=== PATIENT | female | born 1995 | race Caucasian/White ===

== ENCOUNTER 2025-02-10 10:01 | Emergency (ER) | payer BC ==
--- OUTSIDE RECORDS SUMMARY | 2025-02-10 10:08 | XMS REPORT | Continuity of Care Document ---
Author Name Unknown Address [address] [facility] [address] [place] [address] [facility] Address [address] [facility] [address] [place] [address] Care Team Providers Care [facility] Coordinator Name Role Phone aTmmi Wheeler Attending Clinician Unavailable LIZBETH COELLO Attending Clinician Unavaila ble Marry Severino Attending Clinician Unavailable [email or web address] Attending Clinician Unavaila ble G_Pappas Attending Clinician Unavailable WHIT HICKS Attending Clinician Unavailable KATHLEEN Attending Clinician Unavailable CAIO MARLEY Attending Clinician Unavailable ALAN LLOYD Attending Clinician Unavailab MELISSA Gavin Attending Clinician Unavailable Tammi Wheeler Admitting Clinician Unavailable Marry Severino Admitting Clinician Unavailable [email or web address]_S Admitting Clinician Unavaila ble G_Pappas Admitting Clinician Unavailable KNOW, DOES_NOT Admitting Clinician Unavailable KATHLEEN Admitting Clinician Unavailable LIZBETH COELLO Admitting Clinician Unavaila arsh Payers Payer Name Policy Type Policy Number Effective Date Expirati on Date Source [place] [id number] 2018 00:00:00 Problems Condition Name Condition Details Condition Category Status Onset Date Resolution Date Last Treatment Date Treating Clinician Comments Source Polyhydram nios Polyhydram nios Problem Active 03-22 00:00: 00 [facility] Large for gestation age fetus Large for Gestation Age Fetus Problem Active 5-05 00:00: 00 [facility] 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 Problem Active 2021-11 1 00:00: 00 [facility] Psoriasis Psoriasis Problem Active 2021-11 00:00: 00 [facility] Problem Active 2021-11 00:00: 00 [facility] High risk due to history of labor High Risk Due to History of Labor Problem Active 2021-11 00:00: 00 [facility] History of premature delivery History of Premature Delivery Problem Active 2018-11 00:00: 00 [facility] Nausea and vomiting Nausea and Vomiting Problem Active 808 00:00: 00 [facility] Risk of exposure to communicab le disease Risk of Exposure to Communicab le Disease Problem Active 807 00:00: 00 [facility] Atypical squamous cells of undetermin ed significan ce Atypical Squamous Cells of Undetermin ed Significan ce Problem Active 7-16 00:00: 00 [facility] Cannabis abuse Cannabis Abuse Problem Active 6-17 00:00: 00 [facility] Allergies, Adverse Reactions, Alerts Allergy Name Allergy Type Status Severity Reaction(s) Onset Date Inactive Date Treating Clinician Comments Source No Known Allergie s DA Active U 8-07 00:00: 00 [facility] No Known Allergie s DA Active U 6-08 00:00: 00 [facility] Social History Smoking Status Start Date Stop Date Source Former Smoker [place] [facility] Medications Ordered Medication Name Filled Medication Name Start Date Stop Date Current Medication? Ordering Clinician Indication Dosage Frequency Signature (SIG) Comments Components Source No [facility] triamcinolo ne acetonide 0.025 % topical cream APPLY A THIN LAYER TO THE AFFECTED AREA(S) BY TOPICAL ROUTE 2 TIMES PER DAY triamcinolo ne acetonide 0.025 % topical cream APPLY A THIN LAYER TO THE AFFECTED AREA(S) BY TOPICAL ROUTE 2 TIMES PER DAY No triamcinol one acetonide 0.025 % topical cream APPLY A THIN LAYER TO THE AFFECTED AREA(S) BY TOPICAL ROUTE 2 TIMES PER DAY [facility] Vitafol Ultra 29 mg iron-1 mg-200 mg capsule Take 1 capsule every day by oral route. Vitafol Ultra 29 mg iron-1 mg-200 mg capsule Take 1 capsule every day by oral route. No 1capsul e(s) Q1D Vitafol Ultra 29 mg iron-1 mg-200 mg capsule Take 1 capsule every day by oral route. [facility] No [facility] triamcinolo ne acetonide 0.025 % topical cream APPLY A THIN LAYER TO THE AFFECTED AREA(S) BY TOPICAL ROUTE 2 TIMES PER DAY triamcinolo ne acetonide 0.025 % topical cream APPLY A THIN LAYER TO THE AFFECTED AREA(S) BY TOPICAL ROUTE 2 TIMES PER DAY No triamcinol one acetonide 0.025 % topical cream APPLY A THIN LAYER TO THE AFFECTED AREA(S) BY TOPICAL ROUTE 2 TIMES PER DAY [facility] Vitafol Ultra 29 mg iron-1 mg-200 mg capsule Take 1 capsule every day by oral route. Vitafol Ultra 29 mg iron-1 mg-200 mg capsule Take 1 capsule every day by oral route. No 1capsul e(s) Q1D Vitafol Ultra 29 mg iron-1 mg-200 mg capsule Take 1 capsule every day by oral route. [facility] ferrous gluconate 240 mg (27 mg iron) tablet Take 1 tablet every day by oral route. ferrous gluconate 240 mg (27 mg iron) tablet Take 1 tablet every day by oral route. No 1 Q1D ferrous gluconate 240 mg (27 mg iron) tablet Take 1 tablet every day by oral route. [facility] No [facility] triamcinolo ne acetonide 0.025 % topical cream APPLY A THIN LAYER TO THE AFFECTED AREA(S) BY TOPICAL ROUTE 2 TIMES PER DAY triamcinolo ne acetonide 0.025 % topical cream APPLY A THIN LAYER TO THE AFFECTED AREA(S) BY TOPICAL ROUTE 2 TIMES PER DAY No triamcinol one acetonide 0.025 % topical cream APPLY A THIN LAYER TO THE AFFECTED AREA(S) BY TOPICAL ROUTE 2 TIMES PER DAY [facility] Vitafol Ultra 29 mg iron-1 mg-200 mg capsule Take 1 capsule every day by oral route. Vitafol Ultra 29 mg iron-1 mg-200 mg capsule Take 1 capsule every day by oral route. No 1capsul e(s) Q1D Vitafol Ultra 29 mg iron-1 mg-200 mg capsule Take 1 capsule every day by oral route. [facility] ferrous gluconate 240 mg (27 mg iron) tablet Take 1 tablet every day by oral route. ferrous gluconate 240 mg (27 mg iron) tablet Take 1 tablet every day by oral route. No 1 Q1D ferrous gluconate 240 mg (27 mg iron) tablet Take 1 tablet every day by oral route. [facility] No [facility] triamcinolo ne acetonide 0.025 % topical cream APPLY A THIN LAYER TO THE AFFECTED AREA(S) BY TOPICAL ROUTE 2 TIMES PER DAY triamcinolo ne acetonide 0.025 % topical cream APPLY A THIN LAYER TO THE AFFECTED AREA(S) BY TOPICAL ROUTE 2 TIMES PER DAY No triamcinol one acetonide 0.025 % topical cream APPLY A THIN LAYER TO THE AFFECTED AREA(S) BY TOPICAL ROUTE 2 TIMES PER DAY [facility] Vitafol Ultra 29 mg iron-1 mg-200 mg capsule Take 1 capsule every day by oral route. Vitafol Ultra 29 mg iron-1 mg-200 mg capsule Take 1 capsule every day by oral route. No 1capsul e(s) Q1D Vitafol Ultra 29 mg iron-1 mg-200 mg capsule Take 1 capsule every day by oral route. [facility] ferrous gluconate 240 mg (27 mg iron) tablet Take 1 tablet every day by oral route. ferrous gluconate 240 mg (27 mg iron) tablet Take 1 tablet every day by oral route. No 1 Q1D ferrous gluconate 240 mg (27 mg iron) tablet Take 1 tablet every day by oral route. [facility] No [facility] triamcinolo ne acetonide 0.025 % topical cream APPLY A THIN LAYER TO THE AFFECTED AREA(S) BY TOPICAL ROUTE 2 TIMES PER DAY triamcinolo ne acetonide 0.025 % topical cream APPLY A THIN LAYER TO THE AFFECTED AREA(S) BY TOPICAL ROUTE 2 TIMES PER DAY No triamcinol one acetonide 0.025 % topical cream APPLY A THIN LAYER TO THE AFFECTED AREA(S) BY TOPICAL ROUTE 2 TIMES PER DAY [facility] Vitafol Ultra 29 mg iron-1 mg-200 mg capsule Take 1 capsule every day by oral route. Vitafol Ultra 29 mg iron-1 mg-200 mg capsule Take 1 capsule every day by oral route. No 1capsul e(s) Q1D Vitafol Ultra 29 mg iron-1 mg-200 mg capsule Take 1 capsule every day by oral route. [facility] ferrous gluconate 240 mg (27 mg iron) tablet Take 1 tablet every day by oral route. ferrous gluconate 240 mg (27 mg iron) tablet Take 1 tablet every day by oral route. No 1 Q1D ferrous gluconate 240 mg (27 mg iron) tablet Take 1 tablet every day by oral route. [facility] triamcinolo ne acetonide 0.025 % topical cream APPLY A THIN LAYER TO THE AFFECTED AREA(S) BY TOPICAL ROUTE 2 TIMES PER DAY triamcinolo ne acetonide 0.025 % topical cream APPLY A THIN LAYER TO THE AFFECTED AREA(S) BY TOPICAL ROUTE 2 TIMES PER DAY No triamcinol one acetonide 0.025 % topical cream APPLY A THIN LAYER TO THE AFFECTED AREA(S) BY TOPICAL ROUTE 2 TIMES PER DAY [facility] Vitafol Ultra 29 mg iron-1 mg-200 mg capsule Take 1 capsule every day by oral route. Vitafol Ultra 29 mg iron-1 mg-200 mg capsule Take 1 capsule every day by oral route. No 1capsul e(s) Q1D Vitafol Ultra 29 mg iron-1 mg-200 mg capsule Take 1 capsule every day by oral route. [facility] ferrous gluconate 240 mg (27 mg iron) tablet Take 1 tablet every day by oral route. ferrous gluconate 240 mg (27 mg iron) tablet Take 1 tablet every day by oral route. No 1 Q1D ferrous gluconate 240 mg (27 mg iron) tablet Take 1 tablet every day by oral route. [facility] Vitafol Ultra 29 mg iron-1 mg-200 mg capsule Take 1 capsule every day by oral route. Vitafol Ultra 29 mg iron-1 mg-200 mg capsule Take 1 capsule every day by oral route. No 1capsul e(s) Q1D Vitafol Ultra 29 mg iron-1 mg-200 mg capsule Take 1 capsule every day by oral route. [facility] ferrous gluconate 240 mg (27 mg iron) tablet Take 1 tablet every day by oral route. ferrous gluconate 240 mg (27 mg iron) tablet Take 1 tablet every day by oral route. No 1 Q1D ferrous gluconate 240 mg (27 mg iron) tablet Take 1 tablet every day by oral route. [facility] metronidazo le 500 mg tablet Take 1 tablet every 12 hours by oral route for 7 days. metronidazo le 500 mg tablet Take 1 tablet every 12 hours by oral route for 7 days. No metronidaz ole 500 mg tablet Take 1 tablet every 12 hours by oral route for 7 days. [facility] Vitafol Ultra 29 mg iron-1 mg-200 mg capsule Take 1 capsule every day by oral route. Vitafol Ultra 29 mg iron-1 mg-200 mg capsule Take 1 capsule every day by oral route. No 1capsul e(s) Q1D Vitafol Ultra 29 mg iron-1 mg-200 mg capsule Take 1 capsule every day by oral route. [facility] ferrous gluconate 240 mg (27 mg iron) tablet Take 1 tablet every day by oral route. ferrous gluconate 240 mg (27 mg iron) tablet Take 1 tablet every day by oral route. No 1 Q1D ferrous gluconate 240 mg (27 mg iron) tablet Take 1 tablet every day by oral route. [facility] ibuprofen 600 mg tablet ibuprofen 600 mg tablet No ibuprofen 600 mg tablet [facility] oxycodone 5 mg tablet oxycodone 5 mg tablet No oxycodone 5 mg tablet [facility] Vitafol Ultra 29 mg iron-1 mg-200 mg capsule Take 1 capsule every day by oral route. Vitafol Ultra 29 mg iron-1 mg-200 mg capsule Take 1 capsule every day by oral route. No 1capsul e(s) Q1D Vitafol Ultra 29 mg iron-1 mg-200 mg capsule Take 1 capsule every day by oral route. [facility] ferrous gluconate 240 mg (27 mg iron) tablet Take 1 tablet every day by oral route. ferrous gluconate 240 mg (27 mg iron) tablet Take 1 tablet every day by oral route. No 1 Q1D ferrous gluconate 240 mg (27 mg iron) tablet Take 1 tablet every day by oral route. [facility] ibuprofen 600 mg tablet ibuprofen 600 mg tablet No ibuprofen 600 mg tablet [facility] oxycodone 5 mg tablet oxycodone 5 mg tablet No oxycodone 5 mg tablet [facility] Vitafol Ultra 29 mg iron-1 mg-200 mg capsule Take 1 capsule every day by oral route. Vitafol Ultra 29 mg iron-1 mg-200 mg capsule Take 1 capsule every day by oral route. No 1capsul e(s) Q1D Vitafol Ultra 29 mg iron-1 mg-200 mg capsule Take 1 capsule every day by oral route. [facility] butalbital- acetaminoph en-caffeine 50 mg-325 mg-40 mg tablet butalbital- acetaminoph en-caffeine 50 mg-325 mg-40 mg tablet No butalbital -acetamino phen-caffe ine 50 mg-325 mg-40 mg tablet [facility] citalopram 20 mg tablet TAKE 1 TABLET BY MOUTH EVERY DAY citalopram 20 mg tablet TAKE 1 TABLET BY MOUTH EVERY DAY No citalopram 20 mg tablet TAKE 1 TABLET BY MOUTH EVERY DAY [facility] Depo-Packaging Clerk a Depo-Packaging Clerk a No Depo-Prove ra [facility] ferrous gluconate 240 mg (27 mg iron) tablet Take 1 tablet every day by oral route. ferrous gluconate 240 mg (27 mg iron) tablet Take 1 tablet every day by oral route. No 1 Q1D ferrous gluconate 240 mg (27 mg iron) tablet Take 1 tablet every day by oral route. [facility] fluconazole 150 mg tablet Take 1 tablet every 72 hours by oral route. fluconazole 150 mg tablet Take 1 tablet every 72 hours by oral route. No 1 fluconazol e 150 mg tablet Take 1 tablet every 72 hours by oral route. [facility] hydrocodone 5 mg-acetamin ophen 325 mg tablet hydrocodone 5 mg-acetamin ophen 325 mg tablet No hydrocodon e 5 mg-acetami nophen 325 mg tablet [facility] ibuprofen 800 mg tablet ibuprofen 800 mg tablet No ibuprofen 800 mg tablet [facility] lamotrigine 25 mg tablet lamotrigine 25 mg tablet No lamotrigin e 25 mg tablet [facility] Macrobid 100 mg capsule Take 1 capsule twice a day by oral route for 5 days. Macrobid 100 mg capsule Take 1 capsule twice a day by oral route for 5 days. No 1capsul e(s) BID Macrobid 100 mg capsule Take 1 capsule twice a day by oral route for 5 days. [facility] medroxyprog esterone 150 mg/mL intramuscul ar suspension medroxyprog esterone 150 mg/mL intramuscul ar suspension No medroxypro gesterone 150 mg/mL intramuscu lar suspension [facility] + DHA one daily + DHA one daily No + DHA one daily [facility] sulfamethox azole 800 mg-trimetho prim 160 mg tablet Take 1 tablet every 12 hours by oral route as directed for 7 days. sulfamethox azole 800 mg-trimetho prim 160 mg tablet Take 1 tablet every 12 hours by oral route as directed for 7 days. No sulfametho xazole 800 mg-trimeth oprim 160 mg tablet Take 1 tablet every 12 hours by oral route as directed for 7 days. [facility] Vraylar 1.5 mg capsule Vraylar 1.5 mg capsule No Vraylar 1.5 mg capsule [facility] Vraylar 3 mg capsule Vraylar 3 mg capsule No Vraylar 3 mg capsule [facility] No [facility] triamcinolo ne acetonide 0.025 % topical cream APPLY A THIN LAYER TO THE AFFECTED AREA(S) BY TOPICAL ROUTE 2 TIMES PER DAY triamcinolo ne acetonide 0.025 % topical cream APPLY A THIN LAYER TO THE AFFECTED AREA(S) BY TOPICAL ROUTE 2 TIMES PER DAY No triamcinol one acetonide 0.025 % topical cream APPLY A THIN LAYER TO THE AFFECTED AREA(S) BY TOPICAL ROUTE 2 TIMES PER DAY [facility] Vital Signs Vital Name Observation Time Observation Value Comments S ource BP Diastolic 2023-04-24 00:00:00 75 mm[Hg] [facility] Height 2023-04-24 00:00:00 64 [in_i] [facility] BMI (Body Mass Index) 2023-04-24 00:00:00 30.6 kg/m2 [place] BP Systolic 2023-04-24 00:00:00 126 mm[Hg] [facility] Body Weight 2023-04-24 00:00:00 178.4 [lb_av] [facility] BP Diastolic 2023-04-17 00:00:00 85 mm[Hg] [facility] Height 2023-04-17 00:00:00 64 [in_i] [facility] BMI (Body Mass Index) 2023-04-17 00:00:00 30.6 kg/m2 [place] [facility] BP Systolic 2023-04-17 00:00:00 123 mm[Hg] [facility] Body Weight 2023-04-17 00:00:00 178.5 [lb_av] [facility] BP Diastolic 2023-04-09 00:00:00 78 mm[Hg] [facility] Height 2023-04-09 00:00:00 64 [in_i] [facility] BP Systolic 2023-04-09 00:00:00 116 mm[Hg] [facility] BP Diastolic 2023-04-03 00:00:00 80 mm[Hg] [facility] Height 2023-04-03 00:00:00 64 [in_i] [facility] BMI (Body Mass Index) 2023-04-03 00:00:00 29.4 kg/m2 [place] [facility] BP Systolic 2023-04-03 00:00:00 111 mm[Hg] [facility] Body Weight 2023-04-03 00:00:00 171 [lb_av] [facility] BP Diastolic 2023-03-29 00:00:00 79 mm[Hg] [facility] Height 2023-03-29 00:00:00 64 [in_i] [facility] BMI (Body Mass Index) 2023-03-29 00:00:00 29.5 kg/m2 [place] [facility] BP Systolic 2023-03-29 00:00:00 127 mm[Hg] [facility] Body Weight 2023-03-29 00:00:00 172 [lb_av] [facility] BP Diastolic 2023-03-22 00:00:00 88 mm[Hg] [facility] Height 2023-03-22 00:00:00 64 [in_i] [facility] BMI (Body Mass Index) 2023-03-22 00:00:00 29.2 kg/m2 [place] [facility] BP Systolic 2023-03-22 00:00:00 124 mm[Hg] [facility] Body Weight 2023-03-22 00:00:00 170.4 [lb_av] [facility] BP Diastolic 2023-03-08 00:00:00 73 mm[Hg] [facility] Height 2023-03-08 00:00:00 64 [in_i] [facility] BMI (Body Mass Index) 2023-03-08 00:00:00 28.9 kg/m2 [place] [facility] BP Systolic 2023-03-08 00:00:00 116 mm[Hg] [facility] Body Weight 2023-03-08 00:00:00 168.3 [lb_av] [facility] BP Diastolic 2023-01-10 00:00:00 70 mm[Hg] [facility] Height 2023-01-10 00:00:00 64 [in_i] [facility] BMI (Body Mass Index) 2023-01-10 00:00:00 25.8 kg/m2 [place] [facility] BP Systolic 2023-01-10 00:00:00 105 mm[Hg] [facility] Body Weight 2023-01-10 00:00:00 150.3 [lb_av] [facility] BP Diastolic 2022-11-27 00:00:00 75 mm[Hg] [facility] Height 2022-11-27 00:00:00 64 [in_i] [facility] BMI (Body Mass Index) 2022-11-27 00:00:00 25.6 kg/m2 [place] [facility] BP Systolic 2022-11-27 00:00:00 112 mm[Hg] [facility] Body Weight 2022-11-27 00:00:00 149.3 [lb_av] [facility] BP Diastolic 2022-10-30 00:00:00 70 mm[Hg] [facility] Height 2022-10-30 00:00:00 64 [in_i] [facility] BMI (Body Mass Index) 2022-10-30 00:00:00 24.8 kg/m2 [place] [facility] BP Systolic 2022-10-30 00:00:00 113 mm[Hg] [facility] Body Weight 2022-10-30 00:00:00 144.7 [lb_av] [facility] BP Diastolic 2022-10-09 00:00:00 69 mm[Hg] [facility] Height 2022-10-09 00:00:00 64 [in_i] [facility] BMI (Body Mass Index) 2022-10-09 00:00:00 25.6 kg/m2 [place] [facility] BP Systolic 2022-10-09 00:00:00 116 mm[Hg] [facility] Body Weight 2022-10-09 00:00:00 149 [lb_av] [facility] BP Diastolic 2022-02-07 00:00:00 86 mm[Hg] [facility] Height 2022-02-07 00:00:00 64 [in_i] [facility] BMI (Body Mass Index) 2022-02-07 00:00:00 24.8 kg/m2 [place] [facility] BP Systolic 2022-02-07 00:00:00 128 mm[Hg] [facility] Body Weight 2022-02-07 00:00:00 144.6 [lb_av] [facility] BP Diastolic 2020-01-11 00:00:00 81 mm[Hg] [facility] Height 2020-01-11 00:00:00 60 [in_i] [facility] BMI (Body Mass Index) 2020-01-11 00:00:00 28.1 kg/m2 [place] [facility] BP Systolic 2020-01-11 00:00:00 124 mm[Hg] [facility] Body Weight 2020-01-11 00:00:00 143.9 [lb_av] [facility] BP Diastolic 2019-12-21 00:00:00 90 mm[Hg] [facility] Height 2019-12-21 00:00:00 60 [in_i] [facility] BMI (Body Mass Index) 2019-12-21 00:00:00 27.3 kg/m2 [place] [facility] BP Systolic 2019-12-21 00:00:00 129 mm[Hg] [facility] Body Weight 2019-12-21 00:00:00 140 [lb_av] [facility] BP Diastolic 2019-11-27 00:00:00 87 mm[Hg] [facility] Height 2019-11-27 00:00:00 60 [in_i] [facility] BMI (Body Mass Index) 2019-11-27 00:00:00 32 kg/m2 [place] [facility] BP Systolic 2019-11-27 00:00:00 128 mm[Hg] [facility] Body Weight 2019-11-27 00:00:00 164.1 [lb_av] [facility] BP Diastolic 2019-11-20 00:00:00 92 mm[Hg] [facility] Height 2019-11-20 00:00:00 60 [in_i] [facility] BMI (Body Mass Index) 2019-11-20 00:00:00 32 kg/m2 [place] [place] [facility] BP Systolic 2019-11-20 00:00:00 144 mm[Hg] [facility] Body Weight 2019-11-20 00:00:00 164 [lb_av] [facility] BP Diastolic 2019-11-06 00:00:00 76 mm[Hg] [facility] Height 2019-11-06 00:00:00 60 [in_i] [facility] BMI (Body Mass Index) 2019-11-06 00:00:00 30.7 kg/m2 [place] [facility] BP Systolic 2019-11-06 00:00:00 117 mm[Hg] [facility] Body Weight 2019-11-06 00:00:00 157.4 [lb_av] [facility] BP Diastolic 2019-10-26 00:00:00 80 mm[Hg] [facility] Height 2019-10-26 00:00:00 60 [in_i] [facility] BMI (Body Mass Index) 2019-10-26 00:00:00 30.8 kg/m2 [place] [facility] BP Systolic 2019-10-26 00:00:00 131 mm[Hg] [facility] Body Weight 2019-10-26 00:00:00 157.9 [lb_av] [facility] BP Diastolic 2019-10-12 00:00:00 67 mm[Hg] [facility] Height 2019-10-12 00:00:00 60 [in_i] [facility] BMI (Body Mass Index) 2019-10-12 00:00:00 30.2 kg/m2 [place] [facility] BP Systolic 2019-10-12 00:00:00 120 mm[Hg] [facility] Body Weight 2019-10-12 00:00:00 154.6 [lb_av] [facility] BP Diastolic 2019-09-25 00:00:00 71 mm[Hg] [facility] Height 2019-09-25 00:00:00 60 [in_i] [facility] BMI (Body Mass Index) 2019-09-25 00:00:00 30.1 kg/m2 [place] [place] [facility] BP Systolic 2019-09-25 00:00:00 125 mm[Hg] [facility] Body Weight 2019-09-25 00:00:00 154.2 [lb_av] [facility] BP Diastolic 2019-08-28 00:00:00 69 mm[Hg] [facility] Height 2019-08-28 00:00:00 60 [in_i] [facility] BMI (Body Mass Index) 2019-08-28 00:00:00 27.9 kg/m2 [facility] BP Systolic 2019-08-28 00:00:00 114 mm[Hg] [facility] Body Weight 2019-08-28 00:00:00 143.1 [lb_av] [facility] BP Diastolic 2019-07-31 00:00:00 63 mm[Hg] [facility] Height 2019-07-31 00:00:00 60 [in_i] [facility] BMI (Body Mass Index) 2019-07-31 00:00:00 28.1 kg/m2 [facility] BP Systolic 2019-07-31 00:00:00 106 mm[Hg] [facility] Body Weight 2019-07-31 00:00:00 143.8 [lb_av] [facility] BP Diastolic 2019-07-07 00:00:00 69 mm[Hg] [facility] Height 2019-07-07 00:00:00 60 [in_i] [facility] BMI (Body Mass Index) 2019-07-07 00:00:00 27.2 kg/m2 [facility] BP Systolic 2019-07-07 00:00:00 114 mm[Hg] [facility] Body Weight 2019-07-07 00:00:00 139.5 [lb_av] [facility] BP Diastolic 2019-06-09 00:00:00 72 mm[Hg] [facility] Height 2019-06-09 00:00:00 60 [in_i] [facility] BMI (Body Mass Index) 2019-06-09 00:00:00 27 kg/m2 [facility] BP Systolic 2019-06-09 00:00:00 116 mm[Hg] [facility] Body Weight 2019-06-09 00:00:00 138.5 [lb_av] [facility] BP Diastolic 2019-05-18 00:00:00 77 mm[Hg] [facility] Height 2019-05-18 00:00:00 60 [in_i] [facility] BMI (Body Mass Index) 2019-05-18 00:00:00 26.9 kg/m2 [facility] BP Systolic 2019-05-18 00:00:00 131 mm[Hg] [facility] Body Weight 2019-05-18 00:00:00 137.6 [lb_av] [facility] BP Diastolic 2019-04-24 00:00:00 78 mm[Hg] [facility] Height 2019-04-24 00:00:00 60 [in_i] [facility] BMI (Body Mass Index) 2019-04-24 00:00:00 26.8 kg/m2 [facility] BP Systolic 2019-04-24 00:00:00 128 mm[Hg] [facility] Body Weight 2019-04-24 00:00:00 137.2 [lb_av] [facility] Procedures Procedure Date / Time Performed Performing Clinician Source [id number] 2024-07-11 00:[facility] [id number] 2024-07-11 00:[facility] [id number] 2023-04-25 00:00:00 [facility] US(FBP)W/0 NON STRESS TEST 2023-04-24 00:00:00 [facility] non-stress test 2023-04-17 00:00:00 [facility] US, obstetric, limited 2023-04-17 00:00:00 [facility] US(FBP)W/0 NON STRESS TEST 2023-04-17 00:00:00 [facility] US(FBP)W/0 NON STRESS TEST 2023-04-09 00:00:00 [facility] US, obstetric, limited 2023-04-03 00:00:00 [facility] US(FBP)W/0 NON STRESS TEST 2023-04-03 00:00:00 [facility] non-stress test 2023-03-29 00:00:00 [facility] US(FBP)W/0 NON STRESS TEST 2023-03-29 00:00:00 [facility] US, obstetric, limited 2023-03-22 00:00:00 [facility] US(FBP)W/0 NON STRESS TEST 2023-03-22 00:00:00 [facility] ULTRASOUND REPEAT 2023-03-08 00:00:00 [facility] ULTRASOUND REPEAT 2023-02-21 00:00:00 [facility] ULTRASOUND, UTERUS REAL TIME WITH IMAGE DOC, AND MATERNAL EVAL PLUS DETAILED ANATOMIC EXAMINATION, TRANSABDOMINAL APPROACH; SINGLE OR FIRST GESTATION 2023-01-10 00:00:00 [facility] ULTRASOUND, UTERUS REAL TIME WITH IMAGE DOC, AND MATERNAL EVAL PLUS DETAILED ANATOMIC EXAMINATION, TRANSABDOMINAL APPROACH; SINGLE OR FIRST GESTATION 2022-12-31 00:00:00 [facility] ULTRASOUND, UTERUS REAL TIME WITH IMAGE DOC, AND MATERNAL EVAL PLUS DETAILED ANATOMIC EXAMINATION, TRANSABDOMINAL APPROACH; SINGLE OR FIRST GESTATION 2022-11-27 00:00:00 [facility] US, obstetric, limited 2022-11-27 00:00:00 [facility] US, obstetric, limited 2022-10-30 00:00:00 [facility] US, obstetric, limited 2022-10-09 00:00:00 [facility] US, obstetric, limited 2019-11-20 00:00:00 [facility] US, obstetric, limited 2019-10-26 00:00:00 [facility] ULTRASOUND REPEAT 2019-09-25 00:00:00 [facility] ULTRASOUND, UTERUS REAL TIME WITH IMAGE DOC, AND MATERNAL EVAL PLUS DETAILED ANATOMIC EXAMINATION, TRANSABDOMINAL APPROACH; SINGLE OR FIRST GESTATION 2019-07-07 00:00:00 [facility] US, obstetric, limited 2019-07-07 00:00:00 [facility] US, obstetric, limited 2019-06-09 00:00:00 [facility] US, obstetric, limited 2019-05-18 00:00:00 [facility] ULTRASOUND, UTERUS REAL TIME WITH IMAGE DOCUMENTAITON, TRANSVAGINAL 2019-04-24 00:00:00 [facility] Plan of Care Planned Activity Planned Date Details Comments Source Diagnostic Test Pending 2023-04-24 00:00:00 urinalysis, dipstick [code = urinalysis, dipstick] [facility] Instructions [facility] Encounters Start Date/Time End Date/Time Encounter Type Admission Type Attending Clinicians Care Facility Care Department Encounter ID Source 2023-05-16 12:00:00 Inpatient Tammi Hinton [facility] [id number] [facility] 2022-12-25 13:30:00 Inpatient LIZBETH ADAMS [facility] [id number] [facility] 2024-07-11 15:12:00 2024-07-13 22:37:00 Inpatient Marry Chilel [facility] [id number] [facility] 2024-06-24 12:54:00 2024-06-24 14:03:00 Emergency EM Marry Severino [facility] POLY [id number] [facility] 2023-09-14 00:00:00 2023-09-14 00:00:00 Outpatient GC_GCBZW_Ka diyala_S [facility] [id number] [facility] 2023-04-25 14:19:00 2023-04-27 16:51:00 Inpatient Tammi Wilson [facility] [id number] [facility] 2023-04-24 00:00:00 2023-04-24 00:00:00 Lizbeth Coello MD: [address] [place] [address], [address], [place] [address] , Ph. [phone] [facility] [id number] [facility] 2023-04-17 00:00:00 2023-04-17 00:00:00 Outpatient G_Pappas [facility] [id number] [facility] 2023-04-17 00:00:00 2023-04-17 00:00:00 Outpatient G_Pappas [facility] [id number] [facility] 2023-04-17 00:00:00 2023-04-17 00:00:00 Lizbeth Coello MD: [address], [address], [place] [address] , Ph. [phone] [facility] [id number] [facility] 2023-04-09 00:00:00 2023-04-09 00:00:00 Lizbeth Coello MD: [address], [address], [place] [address] , Ph. [phone] [facility] [place] [facility] [id number] [facility] 2023-04-03 00:00:00 2023-04-03 00:00:00 Lizbeth Coello MD: [address], [address], [place] [address] , Ph. [phone] [facility] [id number] [facility] 2023-04-02 06:55:00 2023-04-02 06:55:00 Outpatient Tammi Hinton [facility] [id number] [address] [place] [address] 2023-03-29 00:00:00 2023-03-29 00:00:00 Lizbeth Coello MD: [address], [address], [place] [address] , Ph. [phone] [facility] [id number] [facility] 2023-03-22 00:00:00 2023-03-22 00:00:00 MIK Macdonald-: [address], [address], [place] [address] , Ph. [phone] [facility] [id number] [facility] 2023-03-08 11:40:00 2023-03-08 11:40:00 Outpatient WHIT MAN [facility] [id number] [facility] 2023-03-08 00:00:00 2023-03-08 00:00:00 Wiht Hicks FLIGHT ENGINEER MANAGER-BC: [address], [address], [place] [address] , Ph. [phone] [facility] [id number] [facility] 2023-02-28 08:15:00 2023-02-28 08:15:00 Outpatient LIZBETH ADAMS [facility] [id number] [facility] 2023-01-15 00:00:00 2023-01-15 00:00:00 Outpatient G_Pappas [facility] [id number] [facility] 2023-01-15 00:00:00 2023-01-15 00:00:00 Outpatient G_Pappas [facility] [id number] [facility] 2023-01-15 00:00:00 2023-01-15 00:00:00 Outpatient G_Pappas [facility] [id number] [facility] 2023-01-15 00:00:00 2023-01-15 00:00:00 Outpatient G_Pappas [facility] [id number] [facility] 2023-01-15 00:00:00 2023-01-15 00:00:00 Outpatient G_Pappas [facility] [id number] [facility] 2023-01-15 00:00:00 2023-01-15 00:00:00 Outpatient G_Pappas [facility] [id number] [facility] 2023-01-10 00:00:00 2023-01-10 00:00:00 Outpatient G_Pappas [facility] [id number] [facility] 2023-01-10 00:00:00 2023-01-10 00:00:00 OUMAR MacdonaldBC: [address], [address], [place] [address] , Ph. [phone] [facility] [id number] [facility] 2022-12-24 00:00:00 2022-12-24 00:00:00 Outpatient G_Pappas [facility] [id number] [facility] 2022-11-27 00:00:00 2022-11-27 00:00:00 Outpatient G_Pappas [facility] [id number] [facility] 2022-11-27 00:00:00 2022-11-27 00:00:00 Lizbeth Coello MD: [address], [place] [address] , Ph. [phone] [facility] [place] [facility] [id number] [facility] 2022-11-22 00:00:00 2022-11-22 00:00:00 Outpatient G_Pappas [facility] [id number] [facility] 2022-10-30 16:12:00 2022-10-30 16:12:00 Outpatient WHIT MAN [facility] [id number] [facility] 2022-10-30 00:00:00 2022-10-30 00:00:00 Outpatient G_Pappas [facility] [id number] [facility] 2022-10-30 00:00:00 2022-10-30 00:00:00 OUMAR MacdonaldBC: [address], [place] [address] , Ph. [phone] [facility] [id number] [facility] 2022-10-24 00:00:00 2022-10-24 00:00:00 Outpatient G_Pappas [facility] [id number] [facility] 2022-10-09 15:54:00 2022-10-09 15:54:00 Outpatient WHIT MAN [facility] [id number] [facility] 2022-10-09 00:00:00 2022-10-09 00:00:00 Outpatient G_Pappas [facility] [id number] [facility] 2022-10-09 00:00:00 2022-10-09 00:00:00 OUMAR MacdonaldBC: [address] [address] , Ph. [phone] [facility] [id number] [facility] 2022-10-05 00:00:00 2022-10-05 00:00:00 Outpatient G_Pappas [facility] [id number] [facility] 2022-10-04 00:00:00 2022-10-04 00:00:00 Outpatient G_Pappas [facility] [id number] [facility] 2022-02-19 11:56:00 2022-02-19 11:56:00 Outpatient G_Pappas [facility] [id number] [facility] 2022-02-07 16:25:00 2022-02-07 16:25:00 Outpatient WHIT MAN [facility] [id number] [facility] 2022-02-07 03:38:00 2022-02-07 03:38:00 Outpatient G_Pappas [facility] [id number] [facility] 2022-02-07 00:00:00 2022-02-07 00:00:00 Whit OUMAR HicksBC: [address] [address] , Ph. [phone] [facility] [place] [facility] [id number] [facility] 2021-12-13 04:50:00 2021-12-13 04:50:00 Outpatient LISTER_MELI [facility] [id number] [facility] 2020-10-12 12:19:00 2020-10-12 12:19:00 Outpatient G_Pappas [facility] [id number] [facility] 2020-10-05 02:18:00 2020-10-05 02:18:00 Outpatient G_Pappas [facility] [id number] [facility] 2020-01-12 10:42:00 2020-01-12 10:42:00 Outpatient G_Pappas [facility] [id number] [facility] 2020-01-11 12:19:00 2020-01-11 12:19:00 Outpatient G_Pappas [facility] [id number] [facility] 2020-01-11 00:00:00 2020-01-11 00:00:00 Lizbeth Coello MD: [address] [place] [address] , Ph. [phone] [facility] [place] [facility] [id number] [facility] 2019-12-22 11:23:00 2019-12-22 11:23:00 Outpatient G_Pappas [facility] [id number] [facility] 2019-12-21 05:00:00 2019-12-21 05:00:00 Outpatient G_Pappas [facility] [id number] [facility] 2019-12-21 00:00:00 2019-12-21 00:00:00 Lizbeth Coello MD: [address] [address] , Ph. [phone] [facility] [place] [facility] [id number] [facility] 2019-12-17 10:53:00 2019-12-17 10:53:00 Outpatient G_Pappas [facility] [id number] [facility] 2019-12-16 01:46:00 2019-12-16 01:46:00 Outpatient G_Pappas [facility] [id number] [facility] 2019-11-29 07:54:00 2019-11-30 13:40:00 Inpatient ER LIZBETH COELLO [facility] [id number] [facility] 2019-11-28 10:26:00 2019-11-28 10:26:00 Outpatient G_Pappas [facility] [id number] [facility] 2019-11-27 11:18:00 2019-11-27 11:18:00 Outpatient G_Pappas [facility] [id number] [facility] 2019-11-27 00:00:00 2019-11-27 00:00:00 Lizbeth Coello MD: [address] [place] [address] , Ph. [phone] [facility] [place] [facility] [id number] [facility] 2019-11-22 10:51:00 2019-11-22 10:51:00 Outpatient G_Pappas [facility] [id number] [facility] 2019-11-22 10:51:00 2019-11-22 10:51:00 Outpatient G_Pappas [facility] [id number] [facility] 2019-11-20 11:50:00 2019-11-20 11:50:00 Outpatient G_Pappas [facility] [id number] [facility] 2019-11-20 00:00:00 2019-11-20 00:00:00 Lizbeth Coello MD: [address] [address] , Ph. [phone] [facility] [place] [facility] [id number] [facility] 2019-11-14 01:08:00 2019-11-14 01:08:00 Outpatient G[facility]appas [facility] [id number] [facility] 2019-11-06 00:00:00 2019-11-06 00:00:00 Lizbeth Coello MD: [address], [place] [address] , Ph. [phone] [facility] [id number] [facility] 2019-10-26 00:00:00 2019-10-26 00:00:00 DYLAN Turner: [address], [place] [address] , Ph. [phone] [facility] [place] [facility] [id number] [facility] 2019-10-12 00:00:00 2019-10-12 00:00:00 Lizbeth Coello MD: [address] [facility], [place] [address] , Ph. [phone] [facility] [place] [facility] [id number] [facility] 2019-09-25 09:38:00 2019-09-25 09:38:00 Outpatient CAIO SILVERMAN [facility] [id number] [facility] 2019-09-25 00:00:00 2019-09-25 00:00:00 DYLAN Turner: [address] [facility], [place] [address] , Ph. [phone] [facility] [id number] [facility] 2019-08-28 00:00:00 2019-08-28 00:00:00 Lizbeth Coello MD: [address], [place] [address] , Ph. [phone] [facility] [id number] [facility] 2019-07-31 00:00:00 2019-07-31 00:00:00 Lizbeth Coello MD: [address], [place] [address] , Ph. [phone] [facility] [id number] [facility] 2019-07-07 16:27:00 2019-07-07 16:27:00 Outpatient LIZBETH ADAMS [facility] [id number] [facility] 2019-07-07 00:00:00 2019-07-07 00:00:00 Lizbeth Coello MD: [address], [place] [address] , Ph. [phone] [facility] [id number] [facility] 2019-06-09 00:00:00 2019-06-09 00:00:00 DYLAN Turner: [address], [place] [address] , Ph. [phone] [facility] [id number] [facility] 2019-05-18 00:00:00 2019-05-18 00:00:00 Lizbeth Coello MD: [address], [address], [place] [address] , Ph. [phone] [facility] [id number] [facility] 2019-04-24 14:54:00 2019-04-24 14:54:00 Outpatient LIZBETH ADAMS [facility] [id number] [facility] 2019-04-24 00:00:00 2019-04-24 00:00:00 Lizbeth Coello MD: [address], [address], [place] [address] , Ph. [phone] [facility] [id number] [facility] 2018-10-24 04:07:00 2018-10-24 04:07:00 Outpatient RAVEN_MALIHAI [facility] [id number] [facility] 2016-04-10 16:20:00 2016-04-12 07:25:00 Inpatient ER LIZBETH COELLO [facility] [id number] [facility] 2016-03-30 14:54:00 2016-03-30 20:00:00 Emergency ER LIZBETH COELLO [facility] [id number] [facility] 2016-03-23 14:57:00 2016-03-23 17:25:00 Emergency ER LIZBETH COELLO [facility] [id number] [facility] 2016-03-20 15:17:00 2016-03-20 15:17:00 Outpatient ROHINI OUMOULIZBETH JOHN [facility] [id number] [facility] 2016-03-11 20:06:00 2016-03-11 23:00:00 Emergency ER LIZBETH COELLO [facility] [id number] [facility] 2016-03-04 18:30:00 2016-03-04 22:00:00 Emergency ER LIZBETH COELLO [facility] [id number] [facility] 2016-02-14 20:49:00 2016-02-14 22:45:00 Emergency ER ALAN LLOYD [facility] [id number] [facility] 2016-01-23 08:31:00 2016-01-23 08:31:00 Outpatient ROHINI OUMOULIZBETH JOHN [facility] [id number] [facility] 2015-12-08 09:51:00 2015-12-08 09:51:00 Outpatient ROHINI OUMOULIZBETH JOHN [facility] [id number] [facility] 2015-12-07 21:57:00 2015-12-08 00:50:00 Emergency ER LIZBETH COELLO [facility] [id number] [facility] 2015-09-13 11:43:00 2015-09-13 11:43:00 Outpatient LIZBETH ADAMS [facility] [id number] [facility] 2015-08-23 14:18:00 2015-08-23 14:18:00 Outpatient MELISSA ESCOBAR [facility] [id number] [facility] 2014-07-05 18:35:00 2014-07-07 11:15:00 Inpatient ER LIZBETH COELLO [facility] [id number] [facility] 2014-06-30 21:37:00 2014-06-30 23:04:00 Emergency ER LIZBETH COELLO [facility] [id number] [facility] 2014-06-18 15:24:00 2014-06-18 19:50:00 Emergency ER LIZBETH COELLO [facility] [id number] [facility] Results Test Description Test Time Test Comments Results Result Co mments Source AB HEPATITIS C [id number] 17:16:00* Test Item Value Reference Range Interpretation Comme nts AB HEPATITIS C (test code = HCVAB) NONREACTIVE NONREACTIVE SIGNAL TO CUTOFF (test code = CUTOFF) <0.02 <0.80 N AB [id number] 17:16:00* Test Item Value Reference Range Interpretation Comme nts AB TREPONEMA (test code = TREPAB) NONREACTIVE NONREACTIVE AB HIV 1 17:16:00* Test Item Value Reference Range Interpretation Comme nts AB HIV 1 2 (test code = QYP21MG) NONREACTIVE NONREACTIVE Done by Siemens 1spireaur 4th Gen HIV Ag/Ab Combo Screen CBC W/AUTO [id number] 16:04:00* Test Item Value Reference Range Interpretation Comme nts WHITE BLOOD CELL (test code = WBC) 13.3 K/mm3 6.5-12.3 H RED BLOOD CELL (test code = RBC) 3.89 M/mm3 3.51-4.69 N HEMOGLOBIN (test code = HGB) 12.9 g/dL 10.1-13.8 N HEMATOCRIT (test code = HCT) 37.9 % 32.5-41.8 N MEAN CELL VOLUME (test code = MCV) 97.4 fL 84.6-96.6 H MEAN CELL HGB (test code = MCH) 33.2 pg 27.3-33.9 N MEAN CELL HGB CONCETRATION ( test code = MCHC) 34.0 gm/dL 32.0-34.2 N RED CELL DISTRIBUTION WIDTH (test code = RDW) 12.2 % 12.2-16.3 N PLATELET COUNT (test code = PLT) 192 K/mm3 134-363 N MEAN PLATELET VOLUME (test c ode = MPV) 11.6 fL 9.2-12.7 N NEUTROPHIL % (test code = NT%) 72.0 % 57.9-77.3 N LYMPHOCYTE % (test code = LY%) 19.8 % 14.5-29.7 N MONOCYTE % (test code = MO%) 7.4 % 3.6-10.2 N EOSINOPHIL % (test code = EO%) 0.2 % 0.0-3.0 N BASOPHIL % (test code = BA%) 0.3 % 0.1-0.9 N NEUTROPHIL # (test code = NT#) 9.6 K/mm3 LYMPHOCYTE # (test code = LY#) 2.6 K/mm3 MONOCYTE # (test code = MO#) 1.0 K/mm3 EOSINOPHIL # (test code = EO#) 0.03 K/mm3 BASOPHIL # (test code = BA#) 0.0 K/mm3 RUPTURE OF [id number] 13:40:00* Test Item Value Reference Range Interpretation Comme nts RUPTURE OF MEMBRANES (test c ode = ROM) NON-RUPTURED URINALYSIS [id number] 13:40:00* Test Item Value Reference Range Interpretation Comme nts UA COLOR (test code = COLU) YELLOW YELLOW UA APPEARANCE (test code = APPU) CLEAR CLEAR UA GLUCOSE DIPSTICK (test co de = DGLUU) NEGATIVE NEG UA BILIRUBIN DIPSTICK (test code = BILU) NEGATIVE NEG UA KETONE DIPSTICK (test cod e = KETU) TRACE NEG A UA SPECIFIC GRAVITY (test co de = SGU) 1.005 1.001-1.035 N UA BLOOD DIPSTICK (test code = TIARA) NEG NEG UA PH DIPSTICK (test code = ANNAMARIE) 7.0 5-9 UA PROTEIN DIPSTICK (test co de = PROU) NEGATIVE NEG UA UROBILINIOGEN DIPSTICK (test code = URO) NEGATIVE mg/dL NEG UA NITRITE DIPSTICK (test co de = GERALDO) NEG NEG UA LEUKOCYTE ESTERASE DIPSTI CK (test code = LEUU) NEG NEG UA WBC (test code = WBCU) 0-2 #/hpf NONE SEEN UA RBC (test code = RBCU) 0-2 #/hpf NONE SEEN UA EPITHELIAL CELLS (test co de = EPIU) FEW #/HPF RARE-FEW UA BACTERIA (test code = BACU) RARE /HPF RARE-FEW URINE SAMPLE: CLEAN CATCHCBC W/AUTO [id number] 09:26:00* Test Item Value Reference Range Interpretation Comme nts WHITE BLOOD CELL (test code = WBC) 11.9 K/mm3 6.5-12.3 N RED BLOOD CELL (test code = RBC) 3.43 M/mm3 3.51-4.69 L HEMOGLOBIN (test code = HGB) 11.5 g/dL 10.1-13.8 N HEMATOCRIT (test code = HCT) 34.3 % 32.5-41.8 N MEAN CELL VOLUME (test code = MCV) 100.0 fL 84.6-96.6 H MEAN CELL HGB (test code = MCH) 33.5 pg 27.3-33.9 N MEAN CELL HGB CONCETRATION ( test code = MCHC) 33.5 gm/dL 32.0-34.2 N RED CELL DISTRIBUTION WIDTH (test code = RDW) 12.1 % 12.2-16.3 L PLATELET COUNT (test code = PLT) 174 K/mm3 134-363 N MEAN PLATELET VOLUME (test c ode = MPV) 11.9 fL 9.2-12.7 N NEUTROPHIL % (test code = NT%) 77.7 % 57.9-77.3 H LYMPHOCYTE % (test code = LY%) 15.0 % 14.5-29.7 N MONOCYTE % (test code = MO%) 6.4 % 3.6-10.2 N EOSINOPHIL % (test code = EO%) 0.3 % 0.0-3.0 N BASOPHIL % (test code = BA%) 0.3 % 0.1-0.9 N NEUTROPHIL # (test code = NT#) 9.3 K/mm3 LYMPHOCYTE # (test code = LY#) 1.8 K/mm3 MONOCYTE # (test code = MO#) 0.8 K/mm3 EOSINOPHIL # (test code = EO#) 0.03 K/mm3 BASOPHIL # (test code = BA#) 0.0 K/mm3 RBC MORPHOLOGY REQUIRED (joao t code = RBCM) NORMAL NORMAL PLATELET MORPHOLOGY REQUIRED (test code = PLTMR) NORMAL NORMAL AG HEPATITIS B [id number] 16:21:00* Test Item Value Reference Range Interpretation Comme nts AG HEPATITIS B SURFACE (test code = HBSAG) NONREACTIVE NONREACTIVE AB HEPATITIS C [id number] 16:21:00* Test Item Value Reference Range Interpretation Comme nts AB HEPATITIS C (test code = HCVAB) NONREACTIVE NONREACTIVE SIGNAL TO CUTOFF (test code = CUTOFF) 0.04 <0.80 N AB [id number] 16:21:00* Test Item Value Reference Range Interpretation Comme nts AB TREPONEMA (test code = TREPAB) NONREACTIVE NONREACTIVE AB HIV 1 16:21:00* Test Item Value Reference Range Interpretation Comme nts AB HIV 1 2 (test code = [id number]) NONREACTIVE NONREACTIVE Done by [employer] 1spireaur 4th Gen HIV Ag/Ab Combo Screen BASIC METABOLIC [id number] 15:30:00* Test Item Value Reference Range Interpretation Comme nts SODIUM (test code = NA) 139 mEq/L 135-145 N POTASSIUM (test code = K) 4.1 mEq/L 3.5-5.0 N CHLORIDE (test code = CL) 105 mEq/L 100-115 N CARBON DIOXIDE (test code = CO2) 24 mEq/L 22-31 N ANION GAP (test code = GAP) 13.80 10-20 N GLUCOSE (test code = GLU) 95 mg/dL 65-110 N BLOOD UREA NITROGEN (test code = BUN) 7 mg/dL 7-18 N GLOMERULAR FILTRATION RATE (test code = GFR) 126 ml/min >60 N The Glomerular Filtration Rate is a calculated parameterbased on serum Creatinine, patient age and sex. GFR valuesless than 60 mL/min/1.73 square meters are indicative ofChronic Kidney Disease. Values less than 15 mL/min/1.73square meters indicate Kidney failure. The calculation forGFR is based on the CKD-EPI (202) calculation. This formulais race indifferent and is the recommended formula for GFRby the National Kidney Foundation for Adults.The GFR will not calculate if the sex is unknown or if thepatient's age is <18 years. CREATININE (test code = CREAT) 0.6 mg/dL 0.5-1.0 N CALCIUM (test code = CA) 8.8 mg/dL 8.4-10.2 N CBC W/AUTO [id number] 15:14:00* Test Item Value Reference Range Interpretation Comme nts WHITE BLOOD CELL (test code = WBC) 8.5 K/mm3 6.5-12.3 N RED BLOOD CELL (test code = RBC) 3.48 M/mm3 3.51-4.69 L HEMOGLOBIN (test code = HGB) 11.7 g/dL 10.1-13.8 N HEMATOCRIT (test code = HCT) 34.2 % 32.5-41.8 N MEAN CELL VOLUME (test code = MCV) 98.3 fL 84.6-96.6 H MEAN CELL HGB (test code = MCH) 33.6 pg 27.3-33.9 N MEAN CELL HGB CONCETRATION ( test code = MCHC) 34.2 gm/dL 32.0-34.2 N RED CELL DISTRIBUTION WIDTH (test code = RDW) 12.2 % 12.2-16.3 N PLATELET COUNT (test code = PLT) 184 K/mm3 134-363 N MEAN PLATELET VOLUME (test c ode = MPV) 11.7 fL 9.2-12.7 N NEUTROPHIL % (test code = NT%) 66.3 % 57.9-77.3 N LYMPHOCYTE % (test code = LY%) 24.0 % 14.5-29.7 N MONOCYTE % (test code = MO%) 8.2 % 3.6-10.2 N EOSINOPHIL % (test code = EO%) 0.6 % 0.0-3.0 N BASOPHIL % (test code = BA%) 0.5 % 0.1-0.9 N NEUTROPHIL # (test code = NT#) 5.6 K/mm3 LYMPHOCYTE # (test code = LY#) 2.0 K/mm3 MONOCYTE # (test code = MO#) 0.7 K/mm3 EOSINOPHIL # (test code = EO#) 0.05 K/mm3 BASOPHIL # (test code = BA#) 0.0 K/mm3 RBC MORPHOLOGY REQUIRED (joao t code = RBCM) NORMAL NORMAL PLATELET MORPHOLOGY REQUIRED (test code = PLTMR) NORMAL NORMAL Urinalysis macro (dipstick) panel - [id number] 10:41:15* Test Item Value Reference Range Interpretation Comme nts Leukocytes (test code = Leukocytes) Small Nitrite (test code = Nitrite) negative Urobilinogen (test code = Urobilinogen) 1 Protein (test code = Protein) Trace pH (test code = pH) 7.0 Blood (test code = Blood) Negative Specific [place] (test code = Specific [place]) 1.025 Ketone (test code = Ketone) Large (80) Bilirubin (test code = Bilirubin) Small Glucose (test code = Glucose) Negative Appearance (test code = Appearance) Clear Color (test code = Color) Dark Yellow [facility] GroupUrinalysis macro (dipstick) panel - [id number] 11:41:00* Test Item Value Reference Range Interpretation Comme nts Leukocytes (test code = Leukocytes) Trace Nitrite (test code = Nitrite) negative Urobilinogen (test code = Urobilinogen) 1 Protein (test code = Protein) Negative pH (test code = pH) 7.0 Blood (test code = Blood) Negative Specific [place] (test code = Specific [place]) 1.020 Ketone (test code = Ketone) Negative Bilirubin (test code = Bilirubin) Negative Glucose (test code = Glucose) Negative Appearance (test code = Appearance) Clear Color (test code = Color) Yellow [facility] GroupStreptococcus agalactiae Ag [Presence] in Vaginal fluid 2023-04-12 00:00:00* Test Item Value Reference Range Interpretation Comme nts group B streptococcus (gbs) by real-time PCR (test code = group B streptococcus (gbs) by real-time PCR) negative [facility] GroupBacterial vaginosis and vaginitis DNA panel - Vaginal fluid by Probe with signal [id number] 00:00:00* Test Item Value Reference Range Interpretation Comme nts chlamydia trachomatis by real-time PCR (reflex to azithromycin resistance by pyrosequencing) (test code = chlamydia trachomatis by real-time PCR (reflex to azithromycin resistance by pyrosequencing)) negative trichomonas vaginalis by real-time PCR (reflex to metronidazole resistance) (test code = trichomonas vaginalis by real-time PCR (reflex to metronidazole resistance)) negative mycoplasma genitalium by real-time PCR (reflex to azithromycin and fluoroquinolone resistance) (test code = mycoplasma genitalium by real-time PCR (reflex to azithromycin and fluoroquinolone resistance)) negative mycoplasma hominis by real-time PCR (test code = mycoplasma hominis by real-time PCR) positive A gardnerella vaginalis by real-time PCR (test code = gardnerella vaginalis by real-time PCR) positive A atopobium vaginae by real-time PCR (test code = atopobium vaginae by real-time PCR) positive A bacterial vaginosis associated bacterium 2 (bvab2) by real-time PCR (test code = bacterial vaginosis associated bacterium 2 (bvab2) by real-time PCR) positive A megasphaera species (type 1 and type 2) by real-time PCR (test code = megasphaera species (type 1 and type 2) by real-time PCR) positive (type1, type2) A neisseria gonorrhoeae by real-time PCR (reflex to antibiotic resistance by molecular analysis) (test code = neisseria gonorrhoeae by real-time PCR (reflex to antibiotic resistance by molecular analysis)) negative lactobacillus (bv & av panel) by real time PCR (test code = lactobacillus (bv & av panel) by real time PCR) see comment ureaplasma urealyticum by real-time PCR (reflex to fluoroquinolone resistance) (test code = ureaplasma urealyticum by real-time PCR (reflex to fluoroquinolone resistance)) negative esteban albicans by real-time PCR (test code = esteban albicans by real-time PCR) negative esteban tropicalis by real-time PCR (test code = esteban tropicalis by real-time PCR) negative esteban parapsilosis by real-time PCR (test code = esteban parapsilosis by real-time PCR) negative esteban glabrata by real-time PCR (test code = esteban glabrata by real-time PCR) negative [facility] GroupUrinalysis macro (dipstick) panel - [id number] 15:30:41* Test Item Value Reference Range Interpretation Comme nts Leukocytes (test code = Leukocytes) Negative Nitrite (test code = Nitrite) negative Urobilinogen (test code = Urobilinogen) .2 Protein (test code = Protein) Negative pH (test code = pH) 7.0 Blood (test code = Blood) Negative Specific [place] (test code = Specific [place]) 1.015 Ketone (test code = Ketone) Negative Bilirubin (test code = Bilirubin) Negative Glucose (test code = Glucose) Negative Appearance (test code = Appearance) Clear Color (test code = Color) Yellow [facility] (dipstick) panel - [id number] 09:17:36* Test Item Value Reference Range Interpretation Comme nts Leukocytes (test code = Leukocytes) Small Nitrite (test code = Nitrite) negative Urobilinogen (test code = Urobilinogen) .2 Protein (test code = Protein) Negative pH (test code = pH) 7.0 Blood (test code = Blood) Negative Specific [place] (test code = Specific [place]) 1.020 Ketone (test code = Ketone) Negative Bilirubin (test code = Bilirubin) Negative Glucose (test code = Glucose) Negative Appearance (test code = Appearance) Clear Color (test code = Color) Yellow [facility]- [facility] SNGL 1ST [id number] 00:00:00 [facility] 1995 Sex: F Patient Name: JAMIN DELAROSA Unit No: [id number] EXAMS: CPT CODE: [id number] MRI SNGL 1ST GEST 88414 PROCEDURE INFORMATION: Exam: MR Fetus Exam date and time: 04/02/2023 8:43 AM Age: 27 years old Clinical indication: Lateral ventriculomegaly TECHNIQUE: Imaging protocol: Multiplanar multisequence Magnetic resonance imaging of the fetus. COMPARISON: US PREG AFTER 1ST TRI 04/02/2023 7:12 AM FINDINGS: Please note there is extensive motion. FINDINGS: Please note that examination is tailored for assessment of the neural axis in an effort to address the sonographic abnormality and is not intended to serve as a full anatomy screening. For the latter please refer to the anatomy screening [facility]. There is a Nunes intrauterine gestation in vertex presentation. Placenta is anterior.Amniotic fluid appears adequate. The cervix measures 2.3 cm. NEURAL AXIS: Colpocephaly is identified. The left occipital horn of the lateral ventricle measures 1.4 cm and the right measures 1.1 cm. The frontal horns appear normal. The 3rd and 4th ventricles appear normal. Cavum septum pellucidum isidentified. The corpus callosum is present although appears somewhat thinned for gestational age. Sulcation gyration appear normal for gestational age. The cerebellar hemispheres and vermis appear normal. Visualized spine appears normal. CHEST: No abnormalities identified.. ABDOMEN: No abnormalities identified.. OTHER FINDINGS: No other significant findings identified.. MATERNAL ABDOMEN: The visualized portions of the maternal musculoskeletal, and GI system are unremarkable. . IMPRESSION: 1. Mild dilatation of the occipital horns of the lateral ventricles as noted above. No other significant findings identified.. [facility] NAME: JAMIN DELAROSA Radiology Department PHYS: Tammi Jang MD [address] : 1995 AGE: 27 SEX: F [place], [place] [address] LOC: F.RAD PHONE #: [phone] EXAM DATE: 04/02/2023 STATUS: DEP CLI FAX #: [phone] RAD NO: Page 1 Signed Report (CONTINUED) Patient Name: JAMIN DELAROSA Unit No: [id number] EXAMS: CPT CODE: [id number] MRI SNGL GEST 91734 (Continued) at 0922 Reported and signed by: Cindy Viveros MD CC: Tammi Wheeler MD Technologist: Bianca Street, RT Trnscrbd D/ (921) GCD.CPS Orig Print D/T: S: 04/03/2023 (921) [facility] NAME: JAMIN DELAROSA Radiology Department PHYS: Tammi Jang MD [address] : 1995 AGE: 27 SEX: F [place] [address] LOC: F.RAD PHONE #: [phone] EXAM DATE: 04/02/2023 STATUS: DEP CLI FAX #: [phone] RAD NO: Page 2 Signed Report- US PREG UT [id number] 10:53:00 [facility] : 1995 Sex: F Patient Name: JAMIN DELAROSA Unit No: [id number] EXAMS: CPT CODE: [id number] US PREG UT TRANSVAGINAL 74224 Indication ======== Follow-up evaluation for anomaly/ Ventriculomegaly History ====== OB History 5. Para 3 Method ====== Transabdominal and transvaginal ultrasound examination ========= Nunes . Number of fetuses: 1 Dating ====== Date Details Gest. age SHERRI Stated SHERRI 33 w + 5 d 05/16/2023 U/S 04/02/2023 based upon AC, BPD, Femur, HC, Humerus 35 w + 1 d 05/06/2023 Assigned dating based on stated SHERRI, selected on 04/02/2023 33 w + 5 d 05/16/2023 General Evaluation Cardiac activity present. FHR 135 bpm. movements: visualized. Presentation: cephalic Placenta: Placental site: no previa, Grade 2, anterior Umbilical cord: Cord vessels: 3 vessel cord Amniotic fluid: Amount of AF: normal. GERDA 20.9 cm Biometry BPD 87.2 mm 35w 1d 85% Hadlock HC 328.8 mm 37w 3d 94% Hadlock AC 330.8 mm 37w 0d >99% Hadlock Femur 64.4 mm 33w 2d 28% Hadlock Humerus 57.2 mm [facility] NAME: JAMIN DELAROSA Radiology Department PHYS: Tammi Jang MD [address] : 1995 AGE: 27 SEX: F [place], [place] [address] LOC: FJorgeRAD PHONE #: [phone] EXAM DATE: 04/02/2023 STATUS: REGCLI FAX #: [phone] RAD NO: Page 1 Signed Report (CONTINUED) Patient Name: JAMIN DELAROSA UnitNo: [id number] EXAMS: CPT CODE: [id number] US PREG UT TRANSVAGINAL 38000 (Continued) 33w 1d 46% Bib HC / AC 0.99 Weight Calculation: EFW 2,799 g 36w 0d 94% Hadlock EFW (lb,oz) 6 lb 3 oz EFW by Hadlock ([id number]) Head / Face / Neck Biometry: Cephalic index 75.03 Extremities / Bony StrucBiometry: FL / BPD 73.90 FL / HC 19.60 FL / AC 19.48 Anatomy The following structures appear abnormal: Head / Neck Right lateral ventricle: 1.3cm. Left lateral ventricle: 1.3 cm. The following structures appear normal: Head / Neck Cranium. Choroid plexus. Midline falx. Cavum septi pellucidi. Cerebellum. Cisterna magna. Face Lips. Profile. Nose. Nasal bone. Orbits. Heart / Thorax 4-chamber view. RVOT view. LVOT view. 3-vessel view. Abdomen Cord insertion. Stomach: left-sided.Kidneys. Bladder. Spine Cervical spine. Thoracic spine. Lumbar spine. Sacral spine. The following structures were visualized: Extremities / Skeleton Arms. Hands. Legs. Feet. Maternal Structures Cervix Visualized Cervical length 1.5 cm Right Ovary Visualized Size 2.6 cm x 2.0 cm x 3.4 cm Left Ovary Not visualized Impression ========= Suspect LGA fetus (>90%). EFW is 2799 g at the 94%. There is mild bilateral enlargement of the posterior horns of the lateral ventricles. The anterior horns, 3rd and 4th ventricles appear [facility] NAME: JAMIN DELAROSA Radiology Department PHYS: Tammi Jang MD [address] : 1995 AGE: 27 SEX: F [place], [place] [address] LOC: F.RAD PHONE #: [phone] EXAM DATE: 04/02/2023 STATUS: REGCLI FAX #: [phone] RAD NO: Page 2 Signed Report (CONTINUED) Patient Name: JAMIN DELAROSA Unit No: [id number] EXAMS: CPT CODE: [id number] [facility] UT TRANSVAGINAL 53230 (Continued) normal. MRI tofollow and reported separately. at 1053 Reported and signed by: Cindy Viveros MD CC: Tammi Wheeler MD Technologist: Gay Webster RDMS Probe: [id number] Trnscrbd D/ (1053) GCD.CPS Orig Print D/T: S: 04/02/2023 (1053) [facility] NAME: JAMIN DELAROSA Radiology Department PHYS: Jannet Jang MD [address] : 1995 AGE: 27 SEX: F [place] [address] LOC: Cristin.RAD PHONE #: [phone] EXAM DATE: 04/02/2023 STATUS: REG CLI FAX #: [phone] RAD NO: Page 3 Signed Report Patient Name: JAMIN DELAROSA Unit No: [id number] EXAMS: CPT CODE: [id number] US PREG UT T RANSVAGINAL 29931 (Continued) [facility] NAME: JAMIN DELAROSA Radiology Department PHYS: Tammi Jang MD [address] : 1995 AGE: 27 SEX: F [place] [address] LOC: Cristin.RAD PHONE #: [phone] EXAM DATE: 04/02/2023 STATUS: REG CLI FAX #: RAD NO: Page 4 Signed Report- US PREG AFTER [id number] 10:53:00[facility] : 1995 Sex: F Patient Name: JAMIN DELAROSA Unit No: [id number] EXAMS: CPT CODE: [id number] US PREG AFTER TRI 17971 Indication ======== Follow-up evaluation for anomaly/ Ventriculomegaly History ====== OBHistory 5. Para 3 Method ====== Transabdominal and transvaginal ultrasound examination ========= Nunes . Number of fetuses: 1 Dating ====== Date Details Gest. age EDDStated SHERRI 33 w + 5 d 05/16/2023 U/S 04/02/2023 based upon AC, BPD, Femur, HC, Humerus 35 w + 1 d 05/06/2023 Assigned dating based on stated SHERRI, selected on 04/02/2023 33 w + 5 d 05/16/2023 General Evaluation Cardiac activity present. FHR 135 bpm. movements: visualized. Presentation: cephalic Placenta: Placental site: no previa, Grade 2, anterior Umbilical cord: Cord vessels:3 vessel cord Amniotic fluid: Amount of AF: normal. GERDA 20.9 cm Biometry BPD 87.2 mm 35w 1d 85% Hadlock HC 328.8 mm 37w 3d 94% Hadlock AC 330.8 mm 37w 0d >99% Hadlock Femur 64.4 mm 33w 2d 28% Hadlock Humerus 57.2 mm [facility] NAME: JAMIN DELAROSA Radiology Department PHYS: Tammi Jang MD [address] : 1995 AGE: 27 SEX: F [place], [place] [address] LOC: RICHARD PHONE #: [phone] EXAM DATE: 04/02/2023 STATUS: REG CLI FAX #: [phone] RAD NO: Page 1 Signed Report (CONTINUED) Patient Name: JAMIN DELAROSA Unit No: [id number] EXAMS: CPT CODE: [id number] US PREG AFTER 1ST TRI 92148 (Continued) 33w 1d 46% Bib HC / AC 0.99 Weight Calculation: EFW 2,799 g 36w 0d 94% Hadlock EFW (lb,oz) 6 lb 3 oz EFW by Hadlock ([id number]-FL) Head / Face / Neck Biometry: Cephalic index 75.03 Extremities / Bony Struc Biometry: FL / BPD 73.90 FL / HC 19.60 FL / AC 19.48 Anatomy The following structures appear abnormal: Head / Neck Right lateral ventricle: 1.3cm. Left lateral ventricle: 1.3 cm. Thefollowing structures appear normal: Head / Neck Cranium. Choroid plexus. Midline falx. Cavum septi pellucidi. Cerebellum. Cisterna magna. Face Lips. Profile. Nose. Nasal bone. Orbits. Heart / Thorax 4-chamber view. RVOT view. LVOT view. 3-vessel view. Abdomen Cord insertion. Stomach: left- sided. Kidneys. Bladder. Spine Cervical spine. Thoracic spine. Lumbar spine. Sacral spine. The following structures were visualized: Extremities / Skeleton Arms. Hands. Legs. Feet. Maternal Structures Cervix Visualized Cervical length 1.5 cm Right Ovary Visualized Size 2.6 cm x 2.0 cm x 3.4cm Left Ovary Not visualized Impression ========= Suspect LGA fetus (>90%). EFW is 2799 g at the94%. There is mild bilateral enlargement of the posterior horns of the lateral ventricles. The anterior horns, 3rd and 4th ventricles appear [facility] PHYS: Tammi Jang MD [address] : 1995 AGE: 27 SEX: F [place], [place] [address] LOC: Cristin.RAD PHONE #: [phone] EXAM DATE: 04/02/2023 STATUS: REG CLI FAX #: [phone] RAD NO: Page 2 Signed Report (CONTINUED) Patient Name: JAMIN DELAROSA Unit No: [id number] EXAMS: CPT CODE: [id number] US PREG AFTER 1ST TRI 29925 (Continued) normal. MRI to follow and reported separately. at 1053 Reported and signed by: Cindy Viveros MD CC: Tammi Wheeler MD Technologist: Gay Webster RDMS Probe: Trnscrbd D/ (1053) GCD.CPS Orig Print D/T: S: 04/02/2023 (1053) [facility] NAME: JAMIN DELAROSA Radiology Department PHYS: Tammi Jang MD [address] : 1995 AGE: 27 SEX: F [place], [place] [address] LOC: DeboRAD PHONE #: [phone] EXAM DATE: 04/02/2023 STATUS: REG CLI FAX #: [phone] RAD NO: Page 3 Signed Report Patient Name: JAMIN DELAROSA Unit No: [id number] EXAMS: CPT CODE: [id number] US PREG AFTER 1ST TRI 42576 (Continued) [facility] NAME: JAMIN DELAROSA Radiology Department PHYS: Tammi Jang MD [address] : 1995 AGE: 27 SEX: F [place], [place] [address] LOC: DeboRAD PHONE #: [phone] EXAM DATE: 04/02/2023 STATUS: REG CLI FAX #: [phone] RAD NO: Page 4 Signed ReportUrinalysis macro (dipstick) panel - [id number] 11:13:08 * Test Item Value Reference Range Interpretation Comme nts Leukocytes (test code = Leukocytes) Negative Nitrite (test code = Nitrite) negative Urobilinogen (test code = Urobilinogen) .2 Protein (test code = Protein) Negative pH (test code = pH) 7.0 Blood (test code = Blood) Negative Specific [place] (test code = Specific [place]) 1.010 Ketone (test code = Ketone) Negative Bilirubin (test code = Bilirubin) Negative Glucose (test code = Glucose) Negative Appearance (test code = Appearance) Clear Color (test code = Color) Yellow [facility] + TV, DNA, urine/[id number] 00:00:00* Test Item Value Reference Range Interpretation Comme nts esteban - swab (test code = esteban - swab) normal gardnerella (test code = gardnerella) abnormal A CT/NG (test code = CT/NG) normal trichomonas vaginalis addon - swab (test code = trichomonas vaginalis addon - swab) normal [facility]12 panel drug [id number] 11:44:00* Test Item Value Reference Range Interpretation Comme nts drug screen note (test code = drug screen note) . [facility] macro (dipstick) panel - [id number] 08:40:44* Test Item Value Reference Range Interpretation Comme nts Leukocytes (test code = Leukocytes) Trace Nitrite (test code = Nitrite) negative Urobilinogen (test code = Urobilinogen) .2 Protein (test code = Protein) Negative pH (test code = pH) 7.0 Blood (test code = Blood) Negative Specific [place] (test code = Specific [place]) 1.025 Ketone (test code = Ketone) Negative Bilirubin (test code = Bilirubin) Negative Glucose (test code = Glucose) Negative Appearance (test code = Appearance) Clear Color (test code = Color) Yellow [facility] CenterRPR2023-04-14 14:32:00* Test Item Value Reference Range Interpretation Comme nts RPR (test code = RPR) nonreactive nonreactive [facility] Centervaricella zoster Ab,[id number] 09:18:00* Test Item Value Reference Range Interpretation Comme nts varicella zoster Ab,IgG (test code = varicella zoster Ab,IgG) 859 index See_Comment [Automated [employer] ge] The system which generated this result transmitted reference range: immune >165. The reference range was not used to interpret this result as normal/abnormal. [facility] Centerthyroid stimulating hormone [id number] 13:09:00* Test Item Value Reference Range Interpretation Comme nts thyroid stimulating hormone L (test code = thyroid stimulating hormone L) 1.00 uIU/mL 0.36-3.74 [facility] CenterThyroxine (T4) free [Mass/volume] in Serum or Plasma 2023-02-28 13:09:00* Test Item Value Reference Range Interpretation Comme nts free T4 (test code = free T4) 1.09 NG/dL 0.93-1.7 [facility] Centerglucose imtiaz 1 HR fasting [id number] 12:50:00Glucose Imtiaz 1 hr F[facility]2023-02-28 12:47:00* Test Item Value Reference Range Interpretation Comme nts HIV P24 Ag (test code = HIV P24 Ag) non-reactive nonreactive HIV-1/2 Ab (test code = HIV- 1/2 Ab) non-reactive nonreactive [facility] W Auto Differential panel - [id number] 12:45:00 * Test Item Value Reference Range Interpretation Comme nts white blood count (test code = white blood count) 7.6 K/uL 4.0-11.5 red blood count (test code = red blood count) 3.51 M/uL 3.80-5.20 L hemoglobin (test code = hemoglobin) 11.7 g/dL 10.5-15.7 hematocrit (test code = hematocrit) 35.4 % 34.0-50.0 mean corpuscular volume (joao t code = mean corpuscular volume) 100.9 fL 86.0-100.0 H mean corpuscular hemoglobin (test code = mean corpuscular hemoglobin) 33.3 pg 26.2-33.4 mean corpuscular HGB conc (t est code = mean corpuscular HGB conc) 33.1 g/dL 30.0-34.0 red cell distribution width (test code = red cell distribution width) 12.4 % 12.0-15.5 platelet count (test code = platelet count) 224 K/uL 165-450 mean platelet volume (test c ode = mean platelet volume) 10.6 fL 9.4-12.6 neutrophils % (test code = neutrophils %) 70.0 % 44.4-80.1 Ig% (test code = Ig%) 0.5 % 0.0-0.4 H lymphocyte% (test code = lymphocyte%) 22.1 % 10.0-50.0 mono % (test code = mono %) 5.8 % 3.6-12.0 eos % (test code = eos %) 1.1 % 0.0-5.4 basophil % (test code = baso diana %) 0.5 % 0.1-1.2 absolute neutrophil count (t est code = absolute neutrophil count) 5.33 K/uL 1.56-6.13 Ig# (test code = Ig#) 0.04 K/uL 0.00-0.03 H lymph # (test code = lymph #) 1.68 K/uL 1.18-3.74 mono # (test code = mono #) 0.44 K/uL 0.24-0.86 eos # (test code = eos #) 0.08 K/uL 0.04-0.36 basophil # (test code = baso diana #) 0.04 K/uL 0.01-0.08 NRBC% (test code = NRBC%) 0 /100 WBC 0-0.2 NRBC# (test code = NRBC#) 0 K/uL [facility] CenterIndirect antiglobulin test.unspecified reagent [Presence] in Serum or [id number] 08:30:00* Test Item Value Reference Range Interpretation Comme nts ind padilla (test code = ind padilla) positive [facility] HospitalUrinalysis macro (dipstick) panel - [id number] 15:01:37* Test Item Value Reference Range Interpretation Comme nts Leukocytes (test code = Leukocytes) Negative Nitrite (test code = Nitrite) negative Urobilinogen (test code = Urobilinogen) .2 Protein (test code = Protein) Negative pH (test code = pH) 7.0 Blood (test code = Blood) Negative Specific [place] (test code = Specific [place]) 1.015 Ketone (test code = Ketone) Negative Bilirubin (test code = Bilirubin) Negative Glucose (test code = Glucose) Negative Appearance (test code = Appearance) Clear Color (test code = Color) Yellow [facility] HospitalUrinalysis macro (dipstick) panel - [id number] 11:36:47* Test Item Value Reference Range Interpretation Comme nts Leukocytes (test code = Leukocytes) Trace Nitrite (test code = Nitrite) negative Urobilinogen (test code = Urobilinogen) .2 Protein (test code = Protein) Negative pH (test code = pH) 7.5 Blood (test code = Blood) Negative Specific [place] (test code = Specific [place]) 1.015 Ketone (test code = Ketone) Negative Bilirubin (test code = Bilirubin) Negative Glucose (test code = Glucose) Negative Appearance (test code = Appearance) Slightly Cloudy Color (test code = Color) Pale Yellow [facility] CenterUrinalysis macro (dipstick) panel - [id number] 14:36:55* Test Item Value Reference Range Interpretation Comme nts Leukocytes (test code = Leukocytes) Negative Nitrite (test code = Nitrite) negative Urobilinogen (test code = Urobilinogen) 1 Protein (test code = Protein) Negative pH (test code = pH) 6.5 Blood (test code = Blood) Negative Specific [place] (test code = Specific [place]) 1.030 Ketone (test code = Ketone) Negative Bilirubin (test code = Bilirubin) Negative Glucose (test code = Glucose) Negative Appearance (test code = Appearance) Slightly Cloudy Color (test code = Color) Yellow [facility] Grouppap, LB + CT/NG/TV + reflex HR [id number] 00:00:00* Test Item Value Reference Range Interpretation Comme nts TP reflex HPV ASCUS,CT/NG/TV (test code = TP reflex HPV ASCUS,CT/NG/TV) normal CT/NG (test code = CT/NG) normal trichomonas vaginalis addon - swab (test code = trichomonas vaginalis addon - swab) normal [facility].unspecified reagent [Presence] in Serum or [id number] 16:15:00* Test Item Value Reference Range Interpretation Comme nts anti-A (test code = anti-A) 4+ anti-Ab (test code = anti-Ab) appeals manager anti-B (test code = anti-B) neg abidr (test code = abidr) anti-jka anti-D (Rh) (test code = anti-D (Rh)) 4+ anti-D 37 (test code = anti-D 37) appeals manager anti-D ahg (test code = anti-D ahg) appeals manager anti-D cc (test code = anti-D cc) appeals manager blood type (test code = blood type) AP D ctl (test code = D ctl) neg D ctl 37 (test code = D ctl 37) appeals manager D ctl ahg (test code = D ctl ahg) appeals manager D ctl cc (test code = D ctl cc) appeals manager ind padilla (test code = ind padilla) positive BBK hist chkd (test code = BBK hist chkd) neg previous abs A cell reverse (test code = A cell reverse) neg B cell reverse (test code = B cell reverse) 3+ [facility] Rh group [Type] in [id number] 16:15:00* Test Item Value Reference Range Interpretation Comme nts anti-A (test code = anti-A) 4+ anti-Ab (test code = anti-Ab) appeals manager anti-B (test code = anti-B) neg abidr (test code = abidr) anti-jka anti-D (Rh) (test code = anti-D (Rh)) 4+ anti-D 37 (test code = anti-D 37) appeals manager anti-D ahg (test code = anti-D ahg) appeals manager anti-D cc (test code = anti-D cc) appeals manager blood type (test code = blood type) AP D ctl (test code = D ctl) neg D ctl 37 (test code = D ctl 37) appeals manager D ctl ahg (test code = D ctl ahg) appeals manager D ctl cc (test code = D ctl cc) appeals manager ind padilla (test code = ind padilla) positive BBK hist chkd (test code = BBK hist chkd) neg previous abs A cell reverse (test code = A cell reverse) neg B cell reverse (test code = B cell reverse) 3+ [facility] CenterUrinalysis macro (dipstick) panel - [id number] 15:02:09* Test Item Value Reference Range Interpretation Comme nts Leukocytes (test code = Leukocytes) Negative Nitrite (test code = Nitrite) negative Urobilinogen (test code = Urobilinogen) .2 Protein (test code = Protein) Negative pH (test code = pH) 7.0 Blood (test code = Blood) Negative Specific [place] (test code = Specific [place]) 1.010 Ketone (test code = Ketone) Negative Bilirubin (test code = Bilirubin) Negative Glucose (test code = Glucose) Negative Appearance (test code = Appearance) Clear Color (test code = Color) Yellow [facility], [id number] 14:56:21* Test Item Value Reference Range Interpretation Comme nts Test (test code = Test) positive [facility] CenterUrinalysis macro (dipstick) panel - [id number] 16:54:30* Test Item Value Reference Range Interpretation Comme nts Leukocytes (test code = Leukocytes) Moderate Nitrite (test code = Nitrite) positive Urobilinogen (test code = Urobilinogen) 1 Protein (test code = Protein) Trace pH (test code = pH) 6.0 Blood (test code = Blood) Hemolyzed: Trace Specific [place] (test code = Specific [place]) 1.025 Ketone (test code = Ketone) Negative Bilirubin (test code = Bilirubin) Negative Glucose (test code = Glucose) Negative Appearance (test code = Appearance) Clear Color (test code = Color) Yellow [facility] W Auto Differential panel - [id number] 04:58:00 * Test Item Value Reference Range Interpretation Comme nts white blood count (test code = white blood count) 10.3 K/uL 4.0-11.5 red blood count (test code = red blood count) 3.16 M/uL 3.80-5.20 L hemoglobin (test code = hemoglobin) 10.8 g/dL 10.5-15.7 hematocrit (test code = hematocrit) 32.6 % 34.0-50.0 L Erythrocyte mean corpuscular volume [Entitic volume] (test code = 98874-6) 103.2 fL 86-100 H mean corpuscular hemoglobin (test code = mean corpuscular hemoglobin) 34.2 pg 26.2-33.4 H mean corpuscular HGB conc (t est code = mean corpuscular HGB conc) 33.1 g/dL 30-34 red cell distribution width (test code = red cell distribution width) 12.8 % 12.0-15.5 platelet count (test code = platelet count) 141 K/uL 165-450 mean platelet volume (test c ode = mean platelet volume) 12.0 fL 9.4-12.6 Neutrophils.segmented/100 leukocytes in Blood (test code = 26251-7) 59.6 % 44.4-80.1 Granulocytes Immature [#/vol ume] in Blood (test code = 64143-9) 0.0 K/uL 0.0-0.03 lymphocyte% (test code = lymphocyte%) 31.4 % 10.0-50.0 mono % (test code = mono %) 6.9 % 3.6-12.0 eos % (test code = eos %) 1.3 % 0.0-5.4 Basophils/100 leukocytes in Unspecified specimen (test code = 62728-0) 0.6 % 0.1-1.2 Neutrophils.band form [#/vol ume] in Blood (test code = 02127-2) 6.17 K/uL 1.56-6.13 H Lymphocytes [#/volume] in Unspecified specimen by Automated count (test code = 47315-6) 3.3 K/uL 1.18-3.74 mono # (test code = mono #) 0.71 K/uL 0.24-0.86 eos # (test code = eos #) 0.13 K/uL 0.04-0.36 basophil # (test code = baso diana #) 0.06 K/uL 0.01-0.08 NRBC% (test code = NRBC%) 0 /100 WBC 0-0.2 NRBC# (test code = NRBC#) 0 K/uL [facility] Centerldiffcomm-[id number] 04:58:00Differential comment-P [facility] W Auto Differential panel - [id number] 07:05:00 * Test Item Value Reference Range Interpretation Comme nts white blood count (test code = white blood count) 8.8 K/uL 4.0-11.5 red blood count (test code = red blood count) 3.62 M/uL 3.80-5.20 L hemoglobin (test code = hemoglobin) 12.4 g/dL 10.5-15.7 hematocrit (test code = hematocrit) 36.2 % 34.0-50.0 Erythrocyte mean corpuscular volume [Entitic volume] (test code = 60191-7) 100.0 fL 86-100 mean corpuscular hemoglobin (test code = mean corpuscular hemoglobin) 34.3 pg 26.2-33.4 H mean corpuscular HGB conc (t est code = mean corpuscular HGB conc) 34.3 g/dL 30-34 H red cell distribution width (test code = red cell distribution width) 12.9 % 12.0-15.5 platelet count (test code = platelet count) 220 K/uL 165-450 mean platelet volume (test c ode = mean platelet volume) 11.7 fL 9.4-12.6 Neutrophils.segmented/100 leukocytes in Blood (test code = 20964-5) 66.3 % 44.4-80.1 Granulocytes Immature [#/vol ume] in Blood (test code = 47293-3) 0.0 K/uL 0.0-0.03 lymphocyte% (test code = lymphocyte%) 25.9 % 10.0-50.0 mono % (test code = mono %) 6.3 % 3.6-12.0 eos % (test code = eos %) 1.0 % 0.0-5.4 Basophils/100 leukocytes in Unspecified specimen (test code = 90284-0) 0.3 % 0.1-1.2 Neutrophils.band form [#/vol ume] in Blood (test code = 13807-9) 5.84 K/uL 1.56-6.13 Lymphocytes [#/volume] in Unspecified specimen by Automated count (test code = 43173-7) 2.3 K/uL 1.18-3.74 mono # (test code = mono #) 0.56 K/uL 0.24-0.86 eos # (test code = eos #) 0.09 K/uL 0.04-0.36 basophil # (test code = baso diana #) 0.03 K/uL 0.01-0.08 NRBC% (test code = NRBC%) 0 /100 WBC 0-0.2 NRBC# (test code = NRBC#) 0 K/uL [facility] Centerldiffcomm-[id number] 07:05:00Differential comment-P [facility] CenterReagin Ab [Presence] in Serum by [id number] 07:05:00* Test Item Value Reference Range Interpretation Comme nts Reagin Ab [Presence] in Seru m by RPR (test code = 76115-2) nonreactive nonreactive [facility] CenterHepatitis B virus surface Ag [Presence] in Serum 2019-11-29 07:05:00* Test Item Value Reference Range Interpretation Comme nts .hepatitis B surface antigen (test code = .hepatitis B surface antigen) negative negative [facility] CenterUrinalysis macro (dipstick) panel - [id number] 10:10:26* Test Item Value Reference Range Interpretation Comme nts Leukocytes (test code = Leukocytes) Negative Nitrite (test code = Nitrite) negative Urobilinogen (test code = Urobilinogen) .2 Protein (test code = Protein) Negative pH (test code = pH) 7.0 Blood (test code = Blood) Negative Specific [place] (test code = Specific [place]) 1.015 Ketone (test code = Ketone) Negative Bilirubin (test code = Bilirubin) Negative Glucose (test code = Glucose) Negative Appearance (test code = Appearance) Clear Color (test code = Color) Yellow [facility] GroupStreptococcus agalactiae [Presence] in Unspecified specimen by Organism specific [id number] 00:00:00* Test Item Value Reference Range Interpretation Comme nts group B streptococcus (gbs) by real-time PCR (test code = group B streptococcus (gbs) by real-time PCR) negative [facility] GroupChlamydia trachomatis+Neisseria gonorrhoeae DNA [Presence] in Unspecified specimen by Probe and target amplification method 2019-11-12 00:00:00* Test Item Value Reference Range Interpretation Comme nts chlamydia trachomatis by mya l-time PCR (reflex to azithromycin resistance by pyrosequencing) (test code = chlamydia trachomatis by real-time PCR (reflex to azithromycin resistance by pyrosequencing)) negative neisseria gonorrhoeae by mya l-time PCR (reflex to antibiotic resistance by molecular analysis) (test code = neisseria gonorrhoeae by real-time PCR (reflex to antibiotic resistance by molecular analysis)) negative [facility] GroupUrinalysis macro (dipstick) panel - [id number] 13:55:07* Test Item Value Reference Range Interpretation Comme nts Leukocytes (test code = Leukocytes) Negative Nitrite (test code = Nitrite) negative Urobilinogen (test code = Urobilinogen) 1 Protein (test code = Protein) Negative pH (test code = pH) 7.0 Blood (test code = Blood) Negative Specific [place] (test code = Specific [place]) 1.015 Ketone (test code = Ketone) Negative Bilirubin (test code = Bilirubin) Negative Glucose (test code = Glucose) Negative Appearance (test code = Appearance) Clear Color (test code = Color) Yellow [facility] GroupUrinalysis macro (dipstick) panel - [id number] 11:24:10* Test Item Value Reference Range Interpretation Comme nts Leukocytes (test code = Leukocytes) Negative Nitrite (test code = Nitrite) negative Urobilinogen (test code = Urobilinogen) 1 Protein (test code = Protein) Negative pH (test code = pH) 7.0 Blood (test code = Blood) Negative Specific [place] (test code = Specific [place]) 1.020 Ketone (test code = Ketone) Negative Bilirubin (test code = Bilirubin) Negative Glucose (test code = Glucose) Negative Appearance (test code = Appearance) Slightly Cloudy Color (test code = Color) Yellow [facility] W Auto Differential panel - [id number] 08:48:00 * Test Item Value Reference Range Interpretation Comme nts white blood count (test code = white blood count) 8.9 K/uL 4.0-11.5 red blood count (test code = red blood count) 3.35 M/uL 3.80-5.20 L hemoglobin (test code = hemoglobin) 11.3 g/dL 10.5-15.7 hematocrit (test code = hematocrit) 33.8 % 34.0-50.0 L Erythrocyte mean corpuscular volume [Entitic volume] (test code = 33524-3) 100.9 fL 86-100 H mean corpuscular hemoglobin (test code = mean corpuscular hemoglobin) 33.7 pg 26.2-33.4 H mean corpuscular HGB conc (t est code = mean corpuscular HGB conc) 33.4 g/dL 30-34 red cell distribution width (test code = red cell distribution width) 11.9 % 12.0-15.5 L platelet count (test code = platelet count) 219 K/uL 165-450 mean platelet volume (test c ode = mean platelet volume) 10.9 fL 9.4-12.6 Neutrophils.segmented/100 leukocytes in Blood (test code = 67707-8) 66.1 % 44.4-80.1 Granulocytes Immature [#/vol ume] in Blood (test code = 04856-6) 0.0 K/uL 0.0-0.03 lymphocyte% (test code = lymphocyte%) 26.3 % 10.0-50.0 mono % (test code = mono %) 5.6 % 3.6-12.0 eos % (test code = eos %) 1.3 % 0.0-5.4 Basophils/100 leukocytes in Unspecified specimen (test code = 13646-9) 0.4 % 0.1-1.2 Neutrophils.band form [#/vol ume] in Blood (test code = 24167-1) 5.90 K/uL 1.56-6.13 Lymphocytes [#/volume] in Unspecified specimen by Automated count (test code = 27808-1) 2.4 K/uL 1.18-3.74 mono # (test code = mono #) 0.50 K/uL 0.24-0.86 eos # (test code = eos #) 0.12 K/uL 0.04-0.36 basophil # (test code = baso diana #) 0.04 K/uL 0.01-0.08 NRBC% (test code = NRBC%) 0 /100 WBC 0-0.2 NRBC# (test code = NRBC#) 0 K/uL [facility] CenterBlood group antibody screen [Presence] in Serum or Plasma 2019-09-25 08:48:00* Test Item Value Reference Range Interpretation Comme nts Blood group antibody screen [Presence] in Serum or Plasma (test code = 890-4) negative [facility] GroupReagin Ab [Presence] in Serum by [id number] 08:48:00* Test Item Value Reference Range Interpretation Comme nts Reagin Ab [Presence] in Seru m by RPR (test code = 86772-7) nonreactive nonreactive [facility] CenterHIV 1+O+2 Ab [Presence] in Serum or [id number] 08:48:00* Test Item Value Reference Range Interpretation Comme nts HIV 1+2 Ab+HIV1 p24 Ag [Presence] in Serum by Immunoassay (test code = 03923-6) non reactive non reactive [facility] CenterUrinalysis macro (dipstick) panel - [id number] 08:46:00* Test Item Value Reference Range Interpretation Comme nts Leukocytes (test code = Leukocytes) Negative Nitrite (test code = Nitrite) negative Urobilinogen (test code = Urobilinogen) 1 Protein (test code = Protein) Negative pH (test code = pH) 7.0 Blood (test code = Blood) Negative Specific [place] (test code = Specific [place]) 1.020 Ketone (test code = Ketone) Negative Bilirubin (test code = Bilirubin) Negative Glucose (test code = Glucose) Negative Appearance (test code = Appearance) Clear Color (test code = Color) Yellow [facility] CenterUrinalysis macro (dipstick) panel - [id number] 16:01:30* Test Item Value Reference Range Interpretation Comme nts Leukocytes (test code = Leukocytes) Negative Nitrite (test code = Nitrite) negative Urobilinogen (test code = Urobilinogen) .2 Protein (test code = Protein) Negative pH (test code = pH) 6.5 Blood (test code = Blood) Negative Specific [place] (test code = Specific [place]) 1.025 Ketone (test code = Ketone) Negative Bilirubin (test code = Bilirubin) Negative Glucose (test code = Glucose) Negative Appearance (test code = Appearance) Clear Color (test code = Color) Yellow [facility] CenterUrinalysis macro (dipstick) panel - [id number] 16:09:19* Test Item Value Reference Range Interpretation Comme nts Leukocytes (test code = Leukocytes) Negative Nitrite (test code = Nitrite) negative Urobilinogen (test code = Urobilinogen) .2 Protein (test code = Protein) Negative pH (test code = pH) 7.0 Blood (test code = Blood) Negative Specific [place] (test code = Specific [place]) 1.025 Ketone (test code = Ketone) Negative Bilirubin (test code = Bilirubin) Negative Glucose (test code = Glucose) Negative Appearance (test code = Appearance) Clear Color (test code = Color) Yellow [facility] Centerpap, LB + reflex to HR HPV if [id number] 00:00:00* Test Item Value Reference Range Interpretation Comme nts General categories [interpre tation] of Cervical or vaginal smear or scraping by Cyto stain (test code = 12463-8) abnormal A [facility] papilloma virus genotype [Identifier] in Unspecified specimen by Probe and target amplification [id number] 00:00:00 * Test Item Value Reference Range Interpretation Comme nts HPV type-detect 3.0 by next gen sequencing (reflex to HPV-16 risk assessment status) (test code = HPV type-detect 3.0 by next gen sequencing (reflex to HPV-16 risk assessment status)) not detected [facility] CenterChlamydia trachomatis+Neisseria gonorrhoeae DNA [Presence] in Unspecified specimen by Probe and target amplification method 2019-05-20 00:00:00* Test Item Value Reference Range Interpretation Comme nts chlamydia trachomatis by mya l-time PCR (reflex to azithromycin resistance by pyrosequencing) (test code = chlamydia trachomatis by real-time PCR (reflex to azithromycin resistance by pyrosequencing)) negative neisseria gonorrhoeae by mya l-time PCR (reflex to antibiotic resistance by molecular analysis) (test code = neisseria gonorrhoeae by real-time PCR (reflex to antibiotic resistance by molecular analysis)) negative [facility] Centerpregnancy test, [id number] 14:31:00* Test Item Value Reference Range Interpretation Comme nts Test (test code = Test) positive [facility] CenterCB W Auto Differential panel - [id number] 01:08:00 * Test Item Value Reference Range Interpretation Comme nts white blood count (test code = white blood count) 8.9 K/uL 4.0-11.5 red blood count (test code = red blood count) 3.83 M/uL 3.80-5.20 Hemoglobin [Mass/volume] in Blood (test code = 718-7) 12.7 g/dL 10.5-15.7 hematocrit (test code = hematocrit) 38.1 % 34.0-50.0 Erythrocyte mean corpuscular volume [Entitic volume] (test code = 15671-7) 99.4 fL 78-98 H Erythrocyte mean corpuscular hemoglobin [Entitic mass] (test code = 34999-7) 33.1 pg 26.2-33.4 mean corpuscular HGB conc (t est code = mean corpuscular HGB conc) 33.3 g/dL 31.5-36.2 red cell distribution width (test code = red cell distribution width) 11.7 % 11.5-15.5 Platelets [#/volume] in Bloo d (test code = 36276-7) 196 K/uL 137-338 Platelet mean volume [Entiti c volume] in Blood (test code = 02758-6) 7.8 fL 8.4-11.8 L Neutrophils.band form/100 leukocytes in Blood (test code = 91058-8) 60.8 % 44.4-80.1 Lymphocytes/100 leukocytes i n Body fluid (test code = 38373-6) 30.4 % 10.0-50.0 Monocytes/100 leukocytes in Blood by Automated count (test code = 5905-5) 6.3 % 3.6-12.0 Eosinophils/100 leukocytes i n Blood by Automated count (test code = 713-8) 1.4 % 0.0-5.4 Basophils/100 leukocytes in Unspecified specimen (test code = 96676-6) 1.1 % 0.0-0.79 H [facility] Groupdifferential panel, [id number] 01:08:00 NeutrophilsBandLymphocyteAtypical LymphMonocyteEosinophilBasophilMetamyelocyteMyelocytePlatelet EstimatePlatelet MorphologyPoikilocytosisAnisocytosisMacrocytosisToxic GranulationSmudge Cells [facility] GroupRubella virus IgG Ab [Titer] in [id number] 01:08:00 * Test Item Value Reference Range Interpretation Comme nts Rubella virus IgG Ab [Units/volume] in Serum by Immunoassay (test code = 5334-8) 50.09 [IU]/mL [facility] GroupHIV 1+2 Ab [Presence] in [id number] 01:08:00HIV P24 AgHIV-1/2 AbMat[facility]orda Medical GroupABO & Rh group [Type] in [id number] 01:08:00* Test Item Value Reference Range Interpretation Comme nts Rh [Type] in Blood (test cod e = 46780-0) 4+ ABO and Rh group panel - Blo od (test code = 58332-8) A positive [facility] GroupBlood group antibody screen [Presence] in Serum or Plasma 2019-04-24 01:08:00* Test Item Value Reference Range Interpretation Comme nts Blood group antibody screen [Presence] in Serum or Plasma (test code = 890-4) negative [facility] GroupBacteria identified in Urine by [id number] 01:08:00* Test Item Value Reference Range Interpretation Comme nts Bacteria identified in Urine by Culture (test code = 630-4) no growth at 48 hrs. [facility] GroupReagin Ab [Presence] in Serum by [id number] 01:08:00* Test Item Value Reference Range Interpretation Comme nts Reagin Ab [Presence] in Seru m by RPR (test code = 49129-3) nonreactive nonreactive [facility] GroupHepatitis B virus surface Ag [Presence] in Serum 2019-04-24 01:00:00* Test Item Value Reference Range Interpretation Comme nts .hepatitis B surface antigen (test code = .hepatitis B surface antigen) negative negative [facility] Notes Date/Time Note Provider Source 2024-07-12 09:35:00 [facility] OB Disch REPORT#:[id number] REPORT STATUS: Signed REPORT INITIALIZATION DATE:07/12/24 TIME: 934 PATIENT: JAMIN DELAROSA UNIT #: [id number] ROOM/BED: [address] : 95 AGE: 28 SEX: F ATTEND: Marry Severino MD ADM AUTHOR: Ada Hernandez MD REPT SERVICE DT/TIME: 07/12/24934 * ALL edits or amendments must be made on the electronic/computer document * Subjective Subjective Admission EGA: Weeks: 36 Days: 2 EGA at delivery (wks/days): 36 weeks (2 days) Status/day: post (day 1) Patient reports: Patient reports: Yes: normal lochia, pain management effective, tolerating po well, voiding well, tolerating ambulation. No: complaints, nausea, vomiting, excessive bleeding, abdominal pain. Objective General VS: Vital Signs Date Temp Pulse Resp B/P B/P Mean Pulse Ox FiO2 07/11-07/12 97.6-98.2 64-88 18 120-136/78-89 91.7-107.0 98-99 Last Documented: Result Date Time B/P Mean 94.0 07/12 439 Pulse Ox 99 07/12 439 B/P 121/81 08/25 0439 Temp 98.1 07/12 439 Pulse 71 07/12 439 Resp 18 07/12 439 PATIENT WEIGHT: Weight (lb): 170 Weight (oz): Weight (kg): 77.300 Physical Exam Breasts: Breasts: normal, filling Cardiac: normal rhythm Lungs: unlabored breathing Neuro: Exam: alert, oriented x3, normal speech, normal gait Abdomen: post gravid, soft, no abnormal tenderness Incision site: none Uterus: involution appropriate, non-tender Fundus: firm, below the umbilicus Lochia: normal Lower extremities: Edema: none Brett's sign: negative Results Findings/Data: Laboratory Tests: 07/11 1520 Hematology WBC (6.5 - 12.3 K/mm3) 13.3 H RBC (3.51 - 4.69 M/mm3) 3.89 Hgb (10.1 - 13.8 g/dL) 12.9 Hct (32.5 - 41.8 %) 37.9 MCV (84.6 - 96.6 fL) 97.4 H MCH (27.3 - 33.9 pg) 33.2 MCHC (32.0 - 34.2 gm/dL) 34.0 RDW (12.2 - 16.3 %) 12.2 Plt Count (134 - 363 K/mm3) 192 MPV (9.2 - 12.7 fL) 11.6 Neut % (Auto) (57.9 - 77.3 %) 72.0 Lymph % (Auto) (14.5 - 29.7 %) 19.8 [place] % (Auto) (3.6 - 10.2 %) 7.4 Eos % (Auto) (0.0 - 3.0 %) 0.2 Baso % (Auto) (0.1 - 0.9 %) 0.3 Neut # (Auto) (K/mm3) 9.6 Lymph # (Auto) (K/mm3) 2.6 [place] # (Auto) (K/mm3) 1.0 Eos # (Auto) (K/mm3) 0.03 Baso # (Auto) (K/mm3) 0.0 Serology Treponema pallidum Ab (NONREACTIVE) NONREACTIVE Hep Bs Antigen (NONREACTIVE) NON REACTIVE Hepatitis C Antibody (NONREACTIVE) NONREACTIVE Hep C Ab Signal/Cutoff (<0.80) <0.02 HIV 1 2 Antibody (NONREACTIVE) NONREACTIVE Discharge Summary General Free Text A P: 28y s/p PTSVD at 36.2 weeks (active labor) 1. PPD#1 - meeting milestones, vssaf - hgb 12, no pph 2. RH pos, Antibody screen JK antibody, RVI, GBS NEG 3. POBHX: 4 all 7#, prior infant with colpocephaly 4. PMH: JK antibody 5. PSH: breast aug 6. SOC: lives in [place], [employer] for delivery, boy secret name for circ dispo: routine pp care, anticipate d/c home PPD2 d/t prematurity Assessment: nml progress Date of admission: Date of admission: 07/11/24 Admission diagnosis: [id number] Hospital course: spontaneous labor, spontaneous vag delivery Procedures: spontaneous vaginal deliv Discharge condition: stable Discharge to: Home/Self Care Discharge diagnosis: pre-term labor Discharge management: greater than 30 mins Baby A: Vaginal delivery: spontaneous status: live born Gender: male 1 minute: 8 5 minutes: 8 Anomalies: none seen Nursing data: The data set between the solid lines has been imported from nursing documentation. Any exceptions have been noted below under Provider comments. Delivery date infant A: 07/11/24 Delivery time infant A: 1538 Birthweight (gm) infant A: 3430 Feeding preference: Gender A: Male 1 minute infant A: 5 minutes infant A: 10 minutes infant A: Provider comments on imported nursing data: [] Plan: routine care, circumcision tomorrow, discharge tomorrow Vaginal packing at delivery: No Discharge Instructions Instructions: routine instr sheet given, instr and warnings rev'd, specific instr as noted Diet: Regular Activity: As Tolerated, No [place] for 6 Wks Additional discharge routines: Attending Follow-Up Contraception discussed: abstinence for 4-6 weeks, will discuss at PP visit Discharge meds: Start taking the following new medications: IBUPROFEN (MOTRIN) 600 MG TAB 600 MILLIGRAM ORAL EVERY 6 HOURS. Qty = 40 Refills = 1 Prescriptions: e-prescribe at 1015 RPT #:[id number] END OF REPORT [facility] 2024-07-11 16:45:00 [facility] OB Delivery Note REPORT#:[id number] REPORT STATUS: Signed REPORT INITIALIZATION DATE:07/11/24 TIME: 1644 PATIENT: JAMIN DELAROSA UNIT #: [id number] ROOM/BED: [address] : 95 AGE: 28 SEX: F ATTEND: Marry Severino MD ADM AUTHOR: Gay Howard MD REPT SERVICE DT/TIME: 07/11/24 1645 * ALL edits or amendments must be made on the electronic/computer document * OB Delivery Nursing Documentation Review Nursing data: The data set between the solid lines has been imported from nursing documentation. Any exceptions have been noted below under Provider comments. _ ROM date: 07/11/24 ROM time: 1534 Membranes rupture method: SROM Amniotic fluid color: Clear Amniotic fluid amount: Steroids prior to arrival: Antibiotic prophylaxis given: Post hemorrhage risk score: LowRisk Delivery date infant A: 07/11/24 Delivery time A: 1538 Birthweight (gm) infant A: 3430 Weight (lb) A: Weight (oz) A: Gender infant A: Male 1 minute infant A: 5 minutes A: 10 minutes infant A: Cord pH obtained infant A: Vacuum time infant A: Vacuum # pulls infant A: Vacuum # popoffs infant A: QBL at delivery: __ Provider comments on imported nursing data: [] Pre-delivery GBS status: GBS status: negative [place] evaluation at delivery: NRP certified personnel Admission EGA: Weeks: 36 Days: 2 EGA at delivery (wks/days): 36 weeks (2 days) Admission indication: labor Blood Loss/Details Blood loss at delivery: <1K: no sx hypovol=no hem, no more than expected EBL at delivery (ml's): 75 Baby A Information Baby A information Delivery date: 07/11/24 Delivery time: 153 status: live born Wt of baby: not yet available Gender: male 1 minute: 8 5 minutes: 8 Presentation: vertex Anomalies: none seen ABG details Baby A Cord blood gases: not collected Nuchal cord Baby A Nuchal cord: yes (tight,deliv.through) Additional comments: As the head crowned and delivered, the perineum was protected with blue towel. The anterior shoulder delivered with gentle downward traction and posterior shoulder with gentle upward traction. A nuchal cord was noted and carefully delivered through. The was then placed on maternal abdomen, bulb suctioned, and the cord clamped and cut after 60 seconds. Placenta delivered spontaneously and intact. Hemostasis achieved with fundal massage and IV pitocin. A 1st ] degree perineal laceration was noted and repaired with 3.0 chromic after 5cc of 1% lidocaine was injected locally. Sponge, lap, and needle counts correct x 2. Good maternal-infant bonding noted. Vaginal Delivery Vaginal Delivery Vaginal delivery: Labor: spontaneous Vaginal delivery: spontaneous Amniotic fluid: clear Anesthesia type: no anesthesia Episiotomy: none Laceration repair: yes, 3-0 suture (chromic) Placenta: spontaneous Count: correct, vag exam neg for sponges Vaginal packing: No Mother's condition: mother stable Infant's condition: infant stable in room Lacerations: Perineal laceration(s): 1st Degree w/vagina at 1648 RPT #:[id number] END OF REPORT [facility] 2024-07-11 16:37:00 [facility] OB Admission / H P REPORT#:[id number] REPORT STATUS: Signed REPORT INITIALIZATION DATE:07/11/24 TIME: 1636 PATIENT: JAMIN DELAROSA UNIT #: [id number] ROOM/BED: [address] : 95 AGE: 28 SEX: F ATTEND: Marry Severino MD ADM AUTHOR: Gay Howard MD REPT SERVICE DT/TIME: 07/11/247 * ALL edits or amendments must be made on the electronic/computer document * OB History Nursing Documentation Review Nursing data: The data set between the solid lines has been imported from nursing documentation. Any exceptions have been noted below under Provider comments. Current data Steroids prior to arrival: ROM date: 07/11/24 ROM time: 153 EDC date: 08/06/24 Gestational age (labor triage): Post hemorrhage risk score: LowRisk Prior history : 6 Para: 4 Term: : Abortions spontaneous: Abortions induced: Living children: Ectopic: Stillbirths: Live births: deaths: Number of previous C/S: Reported maternal labs/data Blood type: Rh type: Rubella: Hepatitis B: HIV exposure test: VDRL: Group B beta strep: Rho(D) immune globulin this preg: Monitor mode - UA: Feeding preference: Provider comments on imported nursing data: [] Chief complaint: uterine contractions HPI: 28yo @36.2 presents in labor, now with regular, painful contractions. No bleeding or loss of fluid. Current : Admission EGA (weeks) 36 Admission EGA (days) 2 Conditions of : false labor (received bmz ) Labs: Rh: positive Rubella: immune GBS: negative Past History Past Medical History: Denies: Alcoholism/subst abuse, Anemia, Arthritis, Asthma, Atrial fibrillation, Cancer, Congestive heart failure, COPD, Coronary artery disease, Dementia, Depression/mood disorder, Diabetes mellitus, GERD/gastritis, Hypertension, Kidney disease/stones, Seizure disorder, Transient ischemic attack, , Abdominal aortic aneurysm, ADD/ADHD, AIDS, Angina pectoris, Anticoagulant therapy, Atrial flutter, Bleeding disorder, BPH, C diff colitis, Cardiac dysrhythmias, Chronic pain, Cirrhosis, Congenital anomalies, Dyslipidemia, Gallbladder dis/stones, GI bleed, Glaucoma, Headache disorder, Hepatitis, HIV, Intracranial hemorrhage, Ischemic stroke, Motor dysfunction, Pancreatitis, Peptic ulcer disease, Periph arterial disease, Pressure ulcer, Prior NV, Schizophrenia, Sickle cell disease, Steroid use, Thyroid disorder, Transfusion history, Tuberculosis, Urinary tract infection, Venous thromboembolism. Additional Medical History: h/o JK Antibody Past Surgical History: Denies: Abdominal surgery, Appendectomy, Bariatric procedure, CABG, Carotid endarterectomy, Cholecystectomy, , Dialysis shunt/AV fistula, Heart valve procedure, Hernia repair, Hysterectomy, Pacemaker, Spine surgery, Splenectomy, Tonsillectomy, Transplant recipient, Vascular procedure, , Amputation, Anesthesia complications, Bilateral tubal ligation, Bladder surgery, Breast biopsy/procedure, Carpal tunnel release, Cranial procedure, D C, Eye surgery, Feeding tube, Hip procedure, ICD, Indwelling IV catheter, Knee procedure, Lithotripsy, Lung surgery, Nephrectomy, PCI, Prostate surgery, Thyroidectomy, Tracheotomy, COURT WORKER shunt. Additional Surgical History: breast augmentation Family History Denies: Abdominal aortic aneurysm, Anemia, Asthma, CAD < 40 yrs old, Cancer, Coagulopathy, Dementia/Alzheimer's dis, Depression/mood disorder, Diabetes, Heart disease, Hypertension, Kidney disease/stones, Seizure disorder, Stroke/TIA , Subarachnoid hemorrhage, Sudden cardiac , Thyroid disorder, , Connective tissue dis, Gallbladder disease, Hyperlipidemia, Neurofibromatosis, Sickle cell disease. Alcohol Use Denies EtOH use Smoking status for patients 13 years old or older: Unknown,if ever smoked Medications: Home Medications: No Known Home Medications Allergies: Coded Allergies: No Known Allergies (06/24/24) Review of Systems : Reports: pelvic pain, . All systems rev neg: except as marked Objective General VS: Vital Signs: Date Time Temp Pulse Resp B/P B/P Pulse O2 O2 Flow FiO2 Mean Ox Delivery Rate 07/11 1558 99.0 07/11 1558 88 132/07/11 1523 101.0 07/11 1523 78 132/81 Last Documented: Result Date Time B/P Mean 99.0 07/11 1558 B/P 13207/11 1558 Pulse 88 07/11 1558 Vital Signs Date Temp Pulse Resp B/P B/P Mean Pulse Ox FiO2 07/11 78-88 132/78-81 99.0-101.0 PATIENT WEIGHT: Weight (lb): 170 Weight (oz): Weight (kg): 77.300 Physical Exam Neuro: Exam: alert, oriented x3, normal speech, normal gait Abdomen: gravid, soft, no abnormal tenderness, no guarding Cervical/ exam: Dilatation (cm): 7 Lower extremities: Edema: none Brett's sign: negative Baby A: Baby A FHR category: category 1 Results Findings/Data: Laboratory Tests: 07/11 1520 Hematology WBC (6.5 - 12.3 K/mm3) 13.3 H RBC (3.51 - 4.69 M/mm3) 3.89 Hgb (10.1 - 13.8 g/dL) 12.9 Hct (32.5 - 41.8 %) 37.9 MCV (84.6 - 96.6 fL) 97.4 H MCH (27.3 - 33.9 pg) 33.2 MCHC (32.0 - 34.2 gm/dL) 34.0 RDW (12.2 - 16.3 %) 12.2 Plt Count (134 - 363 K/mm3) 192 MPV (9.2 - 12.7 fL) 11.6 Neut % (Auto) (57.9 - 77.3 %) 72.0 Lymph % (Auto) (14.5 - 29.7 %) 19.8 [place] % (Auto) (3.6 - 10.2 %) 7.4 Eos % (Auto) (0.0 - 3.0 %) 0.2 Baso % (Auto) (0.1 - 0.9 %) 0.3 Neut # (Auto) (K/mm3) 9.6 Lymph # (Auto) (K/mm3) 2.6 [place] # (Auto) (K/mm3) 1.0 Eos # (Auto) (K/mm3) 0.03 Baso # (Auto) (K/mm3) 0.0 Diagnosis, Assessment Plan Diagnosis, Assessment Plan Free Text A P: Late entry due to precipitious labor after arrival 28yo @ 36.2 weeks in active labor Admitted for IV. Pt requested epidural However SROM, c/c/+1 prepped for delivery without anesthesia OB: CWCC Dr. Severino, RH pos, Antibody screen JK antibody, RVI, GBS NEG POBHX: 4 all 7#, prior with colpocephaly PMH: JK antibody PSH: breast jun SOC: lives in [place], [employer] for delivery, boy secret name for circ at 1645 RPT #:[id number] END OF REPORT [facility] 2024-06-24 13:34:00 [facility] EMERGENCY PROVIDER REPORT REPORT#:[id number] REPORT STATUS: Signed DATE:06/24/24 TIME: 1334 PATIENT: JAMIN DELAROSA UNIT #: [id number] ROOM/BED: AGE: 28 SEX: F PCP PHYS: Marry Severino MD SERVICE AUTHOR: Daron Fenton MD * ALL edits or amendments must be made on the electronic/computer document * See Addendum POLY History Chief complaint: suspected ruptured memb HPI: THIS IS A 28 Y/O AT 33W 6DAYS GESTATION WHO PRESENTED TO POLY C/O LARGE GUSH OF WATER PER VAGINA THIS AM. SHE HAS BEEN HAVING CONTRACTIONS FOR AT LEAST 2 WKS BUT IN OFFICE CX WAS LONG AND CLOSED. THE BABY HAS BEEN ACTIVE history: : 6 Term: 4 Living children: 4 Previous : none Current : EDC: 08/06/24 EGA (weeks/days): 33W 6DAYS Conditions of : ANTI JKA FOLLOWED BY [facility]I [place] Past medical history: denies PMH Past surgical history: denies PSH Social history: Medications: Home Medications: Medication Dose/Rte/Freq Days Qty Entered Last Max Daily Dose Reviewed No Known Home Medications Allergies Coded Allergies: No Known Allergies (06/24/24) Review of Systems : Reports: , other (GUSH OF WATER PER VAGINA). All systems rev neg: except as marked Objective General VS: PATIENT WEIGHT: Weight (lb): Weight (oz): Weight (kg): 76.304324 Physical Exam HEENT: normocephalic w/o injury Neuro: Exam: alert, oriented x3, normal speech, normal gait, CNII-XII grossly intact Abdomen: gravid, soft, no abnormal tenderness, no guarding, no rebound tenderness Genitourinary: no bladder distention, no flank pain Uterine activity: Monitor: toco Frequency (description): occasional Intensity: mild Tachysystole: No FHR evaluation: Baseline: 125 bpm Variability: moderate 6-25 bpm Accelerations: 15 X 15 Decelerations: none FHR category: category 1 Membranes: Membranes: status undetermined, ROM+ PENDING Diagnosis, Assessment Plan Diagnosis, Assessment Plan Assessment/Impression: PREG @ 34 WKS R/O SROM Plan: AWAIT ROM+ RESULTS Plan discussed with: patient, parent, nurse at 1341 Addendum 1: 06/24/24 1350 by Daron Fenton MD Patient Addendum Addendum ADDENDUM: ROM+ NEGATIVE SVE: CX 1. PLAN: DISCHARGE HOME WITH PRECAUTIONS at 1350 RPT #:[id number] END OF REPORT [facility] 2023-04-26 11:50:00 [facility] OB Disch REPORT#:[id number] REPORT STATUS: Signed DATE:04/26/23 TIME: 1150 PATIENT: JAMIN DELAROSA UNIT #: [id number] ROOM/BED: [address] : 95 AGE: 27 SEX: F ATTEND: Tammi Wheeler MD ADM AUTHOR: Tammi Wheeler MD * ALL edits or amendments must be made on the electronic/computer document * Subjective Subjective Patient reports: Patient reports: Yes: normal lochia, pain management effective, tolerating po well, voiding well, voiding without pain. No: complaints. Comments: seen around 7:30 am Objective General VS: Vital Signs Date Temp Pulse Resp B/P B/P Mean Pulse Ox FiO2 04/25-04/26 97.4-98.9 72-102 16-18 115-149/69-92 87.0-112.0 98-99 Last Documented: Result Date Time B/P 119/80 04/26 1022 Temp 97.7 04/26 1022 Pulse 72 04/26 1022 Resp 18 04/26 1022 B/P Mean 90.8 04/26 0509 Pulse Ox 99 04/25 2019 PATIENT WEIGHT: Weight (lb): 178 Weight (oz): Weight (kg): 80.900 Physical Exam Neuro: Exam: alert, oriented x3, normal speech Abdomen: post gravid, soft, no abnormal tenderness Uterus: involution appropriate, non-tender Fundus: firm, below the umbilicus, non-tender Discharge Summary General Admission diagnosis: anomaly, arrythmia, alloisoimmunization Hospital course: augmentation of labor, spontaneous vag delivery, nml postop/ postpart care Discharge to: Home/Self Care Discharge diagnosis: full-term uncomp delivery Baby A: Vaginal delivery: spontaneous status: live born Gender: male 1 minute: 8 5 minutes: 9 Plan: routine care, discharge tomorrow Vaginal packing at delivery: No Discharge Instructions Diet: Regular Activity: As Tolerated, No Driving, No [place] for 6 Wks Additional discharge routines: PCP Follow-Up Discharge meds: Start taking the following new medications: IBUPROFEN (MOTRIN) 600 MG TAB 600 MILLIGRAM ORAL EVERY 6 HOURS NEEDED. as needed for cramping Qty = 25 No Refills oxyCODONE (oxyCODONE) 5 MG TAB 5 MILLIGRAM ORAL EVERY 6 HOURS NEEDED. as needed for severe cramping Qty = 10 No Refills Add'l Follow-up Appointments PCP follow-up: PCP follow up timeframe: [address] Coello at 1152 RPT #:[id number] END OF REPORT [facility] 2023-04-25 22:44:00 [facility] OB Delivery Note REPORT#:[id number] REPORT STATUS: Signed DATE:04/25/23 TIME: 2243 PATIENT: JAMIN DELAROSA UNIT #: [id number] ROOM/BED: [facility] : 95 AGE: 27 SEX: F ATTEND: Tammi Wheeler MD ADM AUTHOR: Tammi Wheeler MD * ALL edits or amendments must be made on the electronic/computer document * OB Delivery Pre-delivery GBS status: GBS status: negative Admission indication: IUP 37 WEEKS, VENTRICULOMEGALY, ISOIMMUNIZATION, PREMATURE ATRIAL CONTRACTIONC Blood Loss/Details Blood loss at delivery: <1K: no sx hypovol=no hem EBL at delivery (ml's): 200 Baby A Information Baby A information Delivery date: 04/25/23 status: live born Wt of baby (grams): 3530 Gender: male 1 minute: 8 5 minutes: 9 Presentation: vertex Nuchal cord Baby A Nuchal cord: yes (loose and reduced), double Vaginal Delivery Vaginal Delivery Vaginal delivery: Labor: augmented Vaginal delivery: spontaneous Amniotic fluid: clear Anesthesia type: epidural anesthesia Episiotomy: none Placenta: spontaneous, intact Post delivery meds used: oxytocin Count: correct Vaginal packing: No Mother's condition: mother stable 's condition: stable in room, NICU TEAM PRESENT Lacerations: Perineal laceration(s): NONE High vaginal laceration: no at 2249 RPT #:[id number] END OF REPORT [facility] 2023-04-25 19:18:00 [id number] [place] [id number] PATIENT NAME: JAMIN DELAROSA ADMIT DATE: 04/25/23 ACCOUNT NO: [id number] ROOM NO: [facility] AGE: 27 SEX: F ADMITTING PHYSICIAN: Tammi Wheeler MD ATTENDING PHYSICIAN: Tammi Wheeler MD [facility] Consult Jamin Delarosa PAC: [id number] Note Date: 04/25/2023 Note Time: 18:45:00 Place of Service: InPatient Requested By: Jayme Saeed Reason for Consultation: 37 wk in pTL with concerns for ventriculomegaly/premature atrial contractions/ JKA antibodies Maternal History : 1995 Mother's Age: 27 Mother's Blood Type: A Pos Mother's Race: White P: 3 RPR Serology: Non-Reactive HIV: Negative Rubella: Unknown GBS: Negative HBsAg: Negative Care: Yes EDC OB: 05/16/2023 Complications Other specified related conditions, unspecified tri (O26.899) Comment: alloimmunization JKA antibiodies Abnormal US finding on screen of mother (O28.3) Comment: Premature atrial contractions- arrhythmia other SCROLL SAW OPERATOR malformation (O35.09X0) Maternal Steroids: No Maternal Medications: No Discussion/Counseling Data gathered after talking to Ms Delarosa in room 5068 (APU) and discussing with Dr Wheeler. Ms Delarosa is 27 year old , currently at gestational age of 37 weeks. Mother mentioned they are having a boy and his name will be David. Per report she had a good care. Her serologies are negative, including her third trimester serologies. Today she was admitted with PTL with possible plan to deliver. Her got complicated with findings of brain ventriculomegaly and premature atrial contractions. Per Dr Wheeler her MRI showed PATIENT NAME: JAMIN DELAROSA ventriculomegaly measuring right sided as 11mm and left sized as 14 mm. She was also reported to had some premature atrial contractions but was not able to get a echo or made it to the navigation. It was also mentioned that mother has alloimmunization with JKA antibodies but never received any transfusion. I discussed the delivery room management and explained the personnel that will be present at delivery. If the will be stable, will provide pinedo hour with mom and after then will admit him for close observation especially because of the history of the premature atrial contractions requiring telemetry with possibility of EKG and ECHO if required. Due to the history of alloimmunization, infant will be at high risk of getting early jaundice and for that he will be requiring a serial bilirubin monitoring and phototherapy as indicated. If bilirubin does not get under control with phototherapy alone, infant may require further diagnostic work up and immunoglobulin and double volume exchange transfusion. will be getting a cranial US with possibility of further imaging including but not limited to MRI brain. We discussed common discharge goals, including mature thermoregulation, mature respiratory status and ability to thrive on oral feedings. Time was allotted for the family to ask questions, and all questions were answered to the best of my ability, given the information provided. The family understands and agrees with the present plan. Thank you for inviting me to speak with the family. We remain available if the family desires further discussion or clarification. Total clinician time devoted to the patient on the day of this visit excluding time spent on other separately reported services was 40 minutes. Authenticated by: GRADY CASIANO MD Date/Time: 04/25/2023 19:18 Authenticated by Grady Casiano MD On 04/26/2023 05:24:00 AM at 0524 PATIENT NAME: JAMIN DELAROSA [facility] 2023-04-25 18:35:00 [facility] OB Admission / H P REPORT#:[id number] REPORT STATUS: Signed DATE:04/25/23 TIME: 1834 PATIENT: JAMIN DELAROSA UNIT #: [id number] ROOM/BED: [address] : 95 AGE: 27 SEX: F ATTEND: Tammi Wheeler MD ADM AUTHOR: Tammi Wheeler MD * ALL edits or amendments must be made on the electronic/computer document * See Addendum OB History Chief complaint: uterine contractions HPI: seen and examined at 6pm 27 y old at 37 weeks who is admitted for augmentation of labor . She is deysi every 2- 5 min . Fetus with allo immunization JKa, low titers but FOB tested positive for tge genotype, B/L ventriculomegaly Lt 14 mm and Rt 11 mm on MRI , and arrythmia - premature atrial contractions. No complaints POHx: x 3 one of them at 36.4 week Past History Past Medical History: Denies: Alcoholism/subst abuse, Anemia, Arthritis, Asthma, Atrial fibrillation, Cancer, Congestive heart failure, COPD, Coronary artery disease, Dementia, Depression/mood disorder, Diabetes mellitus, GERD/gastritis, Hypertension, Kidney disease/stones, Seizure disorder, Transient ischemic attack, , Abdominal aortic aneurysm, ADD/ADHD, AIDS, Angina pectoris, Anticoagulant therapy, Atrial flutter, Bleeding disorder, BPH, C diff colitis, Cardiac dysrhythmias, Chronic pain, Cirrhosis, Congenital anomalies, Dyslipidemia, Gallbladder dis/stones, GI bleed, Glaucoma, Headache disorder, Hepatitis, HIV, Intracranial hemorrhage, Ischemic stroke, Motor dysfunction, Pancreatitis, Peptic ulcer disease, Periph arterial disease, Pressure ulcer, Prior NV, Schizophrenia, Sickle cell disease, Steroid use, Thyroid disorder, Transfusion history, Tuberculosis, Urinary tract infection, Venous thromboembolism. Past Surgical History: Denies: Abdominal surgery, Appendectomy, Bariatric procedure, CABG, Carotid endarterectomy, Cholecystectomy, , Dialysis shunt/AV fistula, Heart valve procedure, Hernia repair, Hysterectomy, Pacemaker, Spine surgery, Splenectomy, Tonsillectomy, Transplant recipient, Vascular procedure, , Amputation, Anesthesia complications, Bilateral tubal ligation, Bladder surgery, Breast biopsy/procedure, Carpal tunnel release, Cranial procedure, D C, Eye surgery, Feeding tube, Hip procedure, ICD, Indwelling IV catheter, Knee procedure, Lithotripsy, Lung surgery, Nephrectomy, PCI, Prostate surgery, Thyroidectomy, Tracheotomy, COURT WORKER shunt. Family History Denies: Abdominal aortic aneurysm, Anemia, Asthma, CAD < 40 yrs old, Cancer, Coagulopathy, Dementia/Alzheimer's dis, Depression/mood disorder, Diabetes, Heart disease, Hypertension, Kidney disease/stones, Seizure disorder, Stroke/TIA , Subarachnoid hemorrhage, Sudden cardiac , Thyroid disorder, , Connective tissue dis, Gallbladder disease, Hyperlipidemia, Neurofibromatosis, Sickle cell disease. Alcohol Use Denies EtOH use Drug Use Marijuana (stopped in 2019) Smoking status for patients 13 years old or older: Never Smoker Allergies: Coded Allergies: No Known Allergies (04/25/23) Review of Systems Constitutional: Denies: chills. Skin: Denies: abrasion. Allergy/Immun: Denies: allergic reaction. Eyes: Denies: redness. ENT: Denies: ear drainage. Respiratory: Denies: GARCIA (dyspnea on exertion), hemoptysis, non productive cough, parox nocturnal dyspnea, pleurisy, pleuritic pain, pneumonia, productive cough (sputum ), SOB, wheezing, other. Objective General VS: Last Documented: Result Date Time B/P Mean 91.0 / 1602 Pulse Ox 99 / 1602 B/P 117/74 /08 1602 Temp 98.0 06/08 1602 Pulse 72 06/08 1602 Resp 17 /08 1602 Vital Signs Date Temp Pulse Resp B/P B/P Mean Pulse Ox FiO2 /08 97.7-98.0 72-96 17 117-137/74-83 91.0-105.0 99 PATIENT WEIGHT: Weight (lb): 178 Weight (oz): Weight (kg): 80.900 Physical Exam HEENT: normocephalic w/o injury Cardiac: regular rate and rhythm Lungs: clear to auscultation Breasts: deferred Neuro: Exam: alert, oriented x3, normal speech Abdomen: gravid, soft, no abnormal tenderness Pelvic exam: Pelvis clinically adequate: yes, adequate pelvis Cervical/ exam: Dilatation (cm): 5 Effacement (%): 80 Est wt (gms): 3500 station: - 3 presentation: cephalic Membranes: Membranes: Intact, bulging Baby A: Baby A baseline: 140 bpm Baby A variability: moderate 6-25 bpm Baby A accelerations: 15 X 15 Baby A FHR category: category 1 Baby A notes: one decel that recovered Results Findings/Data: Laboratory Tests: 04/25 04/25 1444 1442 Chemistry Sodium (135 - 145 mEq/L) 139 Potassium (3.5 - 5.0 mEq/L) 4.1 Chloride (100 - 115 mEq/L) 105 Carbon Dioxide (22 - 31 mEq/L) 24 Anion Gap (10 - 20) 13.80 BUN (7 - 18 mg/dL) 7 Creatinine (0.5 - 1.0 mg/dL) 0.6 Glomerular Filtr Rate (>60 ml/min) 126 Glucose (65 - 110 mg/dL) 95 Calcium (8.4 - 10.2 mg/dL) 8.8 Hematology WBC (6.5 - 12.3 K/mm3) 8.5 RBC (3.51 - 4.69 M/mm3) 3.48 L Hgb (10.1 - 13.8 g/dL) 11.7 Hct (32.5 - 41.8 %) 34.2 MCV (84.6 - 96.6 fL) 98.3 H MCH (27.3 - 33.9 pg) 33.6 MCHC (32.0 - 34.2 gm/dL) 34.2 RDW (12.2 - 16.3 %) 12.2 Plt Count (134 - 363 K/mm3) 184 MPV (9.2 - 12.7 fL) 11.7 Neut % (Auto) (57.9 - 77.3 %) 66.3 Lymph % (Auto) (14.5 - 29.7 %) 24.0 [place] % (Auto) (3.6 - 10.2 %) 8.2 Eos % (Auto) (0.0 - 3.0 %) 0.6 Baso % (Auto) (0.1 - 0.9 %) 0.5 Neut # (Auto) (K/mm3) 5.6 Lymph # (Auto) (K/mm3) 2.0 [place] # (Auto) (K/mm3) 0.7 Eos # (Auto) (K/mm3) 0.05 Baso # (Auto) (K/mm3) 0.0 Serology Treponema pallidum Ab (NONREACTIVE) NONREACTIVE Hep Bs Antigen (NONREACTIVE) NONREACTIVE Hepatitis C Antibody (NONREACTIVE) NONREACTIVE Hep C Ab Signal/Cutoff (<0.80) 0.04 HIV 1 2 Antibody (NONREACTIVE) NONREACTIVE Diagnosis, Assessment Plan Diagnosis, Assessment Plan Assessment/Impression: early labor, IUP 37 weeks, alloimmunization, ventriculomegaly and premature atrial contractions Plan: delivery, awaiting bed on L D to AROM and augment with pitocin as needed, GBS negative per her primary OB Dr Coello Plan discussed with: patient, spouse/partner at 2054 Addendum 1: 04/25/232055 by Tammi Wheeler MD also polyhydramnios, GERDA 27 cm on 04/18/2023 at 2055 RPT #:[id number] END OF REPORT [facility]
[2025-02-10] MEDS ORDERED: NA CHLORIDE 0.9% 1,000 ML ONE (10:51)
[2025-02-10 11:23] LABS: Specific Gravity 1.014 (1.005-1.030)
[2025-02-10 11:23] LABS: Absolute Eosinophils 0.1 K/uL (0-0.5); Absolute Lymphocytes (CBC) 1.8 K/uL (0.7-4.9); Absolute Monocytes 0.4 K/uL (0.1-1.3); Absolute Neutrophil 3.5 K/uL (1.8-8.0); Basophils % 0.5 % (0-1.3); Eosinophils % 1.1 % (0-4.4); Hematocrit 41.4 % (36.0-45.0); Hemoglobin 14.2 g/dL (12.0-15.0); Lymphocytes % 31.9 % (15.3-44.8); MCH 32.9 pg (27.0-35.0); MCHC 34.4 g/dL (32.0-36.0); MCV 95.6 fL (80-100); MPV 8.6 fL (7.6-11.3); Monocytes % 6.6 % (3.3-12.3); Neutrophils % 59.9 % (41.7-73.7); Nucleated Red Blood Cells % 0.1 % (0-0); Platelets 269 thou/uL (152-406); RBC Red Blood Cell Count 4.33 M/uL (3.86-4.86); Red Cell Distribution Width 13.2 % (12.1-15.2)
[2025-02-10 11:38] LABS: ALT/SGPT 18 U/L (13-56); Albumin 4.4 g/dL (3.4-5.0); Albumin/Globulin Ratio 1.3 (1.1-1.8); Alkaline Phosphatase 42 U/L (45-117); Anion Gap 7.9 mEq/L (5.0-15.0); BUN Blood Urea Nitrogen 10 mg/dL (7-18); Bicarbonate 29 mEq/L (21-32); Bilirubin Total 0.6 mg/dL (0.2-1.0); Globulin 3.5 g/dL (2.3-3.5); Glomerular Filtration Rate 95 ml/min (=/>90); Glucose Level 87 mg/dL (74-106); Potassium 3.9 mEq/L (3.5-5.1); Protein, Total 7.9 g/dL (6.4-8.2); Sodium Level 138 mEq/L (136-145)
[2025-02-10 11:39] LABS: AST/SGOT < 10 U/L (15-37)
[2025-02-10 12:17] LABS: Specific Gravity 1.014 (1.005-1.030); Sqamous Epithelial <5 /HPF (None Seen); Urine Bacteria None Seen /HPF (<20); Urine Bilirubin NEGATIVE (Negative); Urine Blood Negative (Negative); Urine Clarity Turbid (Clear); Urine Color Light-Yellow (Yellow); Urine Culture Reflex Order NOT NEEDED; Urine Glucose NEGATIVE (Negative); Urine Ketones NEGATIVE (Negative); Urine Microscopic Reflex YN ORDER UMIC; Urine Nitrite NEGATIVE (Negative); Urine Protein NEGATIVE (Negative); Urine RBC <5 /HPF (None Seen); Urine Urobilinogen Normal (Normal); Urine WBC <5 /HPF (<5); Urine pH 6.5 (5.0-7.0)
--- NOTE | 2025-02-10 12:32 | RAD REPORT ---
EXAMINATION: CT ABDOMEN AND PELVIS WITHOUT CONTRAST CLINICAL INDICATION: PAIN TECHNIQUE: CT abdomen and pelvis was performed, without IV contrast, as per department protocol. Axia l, sagittal and coronal reconstructions were obtained. One or more of the following dose reduction techniques were used: Automated exposure control, adjustment of the mA and kV according to the patien t size, and iterative reconstruction. Unless otherwise specified, incidental findings do not require dedicated imaging follow-up. COMPARISON: No prior exam. FINDINGS: The lack of intravenous contrast limits the sensitivity of this exam for evaluation of solid visceral organs, vascular structures, and retroperitoneum. LOWER CHEST: The visualized lung bases are clear. LIVER:Normal in size and contour. No focal lesion. Grossly unremarkable gallbladder. SPLEEN: Normal size. No focal lesion. PANCREAS: No mass, ductal dilation, or danyel-pancreatic fluid. ADRENALS: Normal; no mass. KIDNEYS AND URETERS: Normal size and contour. No hydronephrosis. URINARY BLADDER: Normal contour. GASTROINTESTINAL TRACT: No evidence of bowel obstruction, significant free fluid, free air or abscess . Moderate stool is retained throughout the colon. APPENDIX: Normal appendix. LYMPH NODES: No lymphadenopathy. MUSCULOSKELETAL: L5-S1 probable disc protrusion. ADDITIONAL FINDINGS: None. IMPRESSION: No acute or concerning abnormalities in the abdomen or pelvis, with evaluation limited by lack of IV contrast. Probable disc protrusion/herniation L5-S1.
[2025-02-10] MEDS ORDERED: CEFTRIAXONE 1000 MG/VIAL ONE (12:49)
[2025-02-10] MEDS ORDERED: dexAMETHasone 10 MG/ML VIAL ONE (12:50)
[2025-02-10] MEDS ORDERED: ONDANSETRON 4 MG/2 ML VIAL ONE (12:50)
[2025-02-10] MEDS ORDERED: FENTANYL CITR 100 MCG/2 ML ONE (12:50)
[2025-02-10] MEDS ORDERED: KETOROLAC 30 MG/ML INJ ONE (12:50)
[2025-02-10] MEDS ORDERED: DIAZEPAM 5 MG TABLET ONE (12:51)
[2025-02-10] MEDS ORDERED: NA CHLORIDE 0.9% 50 ML ONE (12:51)
--- NOTE | 2025-02-10 15:14 | RAD REPORT ---
EXAMINATION: MRI LUMBAR SPINE WITHOUT CONTRAST CLINICAL INDICATION: Numbness TECHNIQUE: Multiplanar multisequence MR images were obtained of the lumbar spine without intravenous contrast. Unless otherwise specified, incidental findings do not require dedicated imaging follow-up. [id number]. COMPARISON: No prior exam. FINDINGS: For purposes of this dictation, it is assumed that there are 5 non rib-bearing lumbar type vertebrae, and the most caudal fully segmented lumbar vertebra is labeled L5. L1-2, L2-3, L3-4 and L4-5 unremarkable Small central disc herniation L5-S1. The S1 nerve roots are not displaced. Disc desiccation is presen t. The thecal sac is normal caliber. The neural foramina are patent. Minimal posterior subluxation L5 on S1. Mild abnormal signal vertebral endplate of L5 likely degenerative in nature. IMPRESSION: Small central disc herniation L5-S1
--- NOTE | 2025-02-10 16:13 | ER ---
Nurse's Notes [facility] Name: Jamin Delarosa Age: 29 yrs Sex: Female : 1995 Arrival Date: 02/10/2025 Time: 10:01 Bed 9 Private MD: Diagnosis: Low back pain;Strain of muscle, fascia and tendon of abdomen, lower back and pelvis;Other fracture of unspecified lumbar vertebra;Other intervertebral disc degeneration, lumbar [id number];UTI/ Urinary tract infection, site not specified Presentation: 02/10 10:15 Chief complaint: Patient states: Low back pain for 4 days. Unable to control urine ll1 started today. No known fever. Coronavirus screen: Client denies travel out of the [place] in the last 14 days. At this time, the client does not indicate any symptoms associated with coronavirus-19. Ebola Screen: Patient denies travel to an Ebola-affected area in the 21 days before illness onset. Initial Sepsis Screen: Does the patient meet any 2 criteria? No. Patient's initial sepsis screen is negative. Does the patient have a suspected source of infection? No. Patient's initial sepsis screen is negative. Risk Assessment: Do you want to hurt yourself or someone else? Patient reports no desire to harm self or others. Onset of symptoms was February 07, 2025. 10:15 Method Of Arrival: Ambulatory ll1 10:15 Acuity: XI 3 ll1 Triage Assessment: 10:15 General: Appears uncomfortable, Behavior is calm, cooperative, appropriate for age. ll1 Pain: Complains of pain in low back Quality of pain is described as aching, sharp. : Reports incontinence, urgency. Musculoskeletal: Reports pain in lower back. SECTION BEAMER: 16:38 LMP N/A - control method, Not ll1 Historical: - Allergies: 10:13 No Known Allergies; ll1 - PMHx: 10:13 PTSD; ll1 - PSHx: 10:13 breast augmentation; ll1 - Immunization history:: Adult Immunizations up to date. - Infectious Disease History:: Denies. - Social history:: Smoking status: Reported history of juuling and/or vaping. Patient denies any tobacco usage or history of. Screenin:37 [facility] ED Fall Risk Assessment (Adult) History of falling in the last 3 months, ll1 including since admission No falls in past 3 months (0 pts) Confusion or Disorientation No (0 pts) Intoxicated or Sedated No (0 pts) Impaired Gait Yes (1 pt) Mobility Assist Device Used Yes (1 pt) Altered Elimination Yes (1 pt) Score/Fall Risk Level 3 or more points = High Risk Maintained a safe environment, Hourly rounding (assess needs \T\ fall precautionary measures) done. Abuse screen: Denies threats or abuse. Nutritional screening: No deficits noted. Tuberculosis screening: No symptoms or risk factors identified. Assessment: 11:11 Reassessment: No changes from previously documented assessment. Patient and/or family ll1 updated on plan of care and expected duration. Pain level reassessed. Patient is alert, oriented x 3, equal unlabored respirations, skin warm/dry/pink. 13:03 Reassessment: No changes from previously documented assessment. Patient and/or family ll1 updated on plan of care and expected duration. Pain level reassessed. Patient is alert, oriented x 3, equal unlabored respirations, skin warm/dry/pink. 16:30 Reassessment: No changes from previously documented assessment. Patient and/or family ll1 updated on plan of care and expected duration. Pain level reassessed. Patient is alert, oriented x 3, equal unlabored respirations, skin warm/dry/pink. Vital Signs: 10:15 BP 120 / 73; Pulse 81; Resp 17; Temp 97.9; Pulse Ox 100% ; Weight 70.31 kg; Height 5 ll1 ft. 4 in. ; Pain 8/10; 16:30 BP 113 / 78; Pulse 76; Resp 16; Pulse Ox 100% on R/A; ll1 10:15 Body Mass Index 26.61 (70.31 kg, 162.56 cm) ll1 10:15 Pain Scale: Adult ll1 ED Course: 10:03 Patient arrived in ED. im 10:06 Herminio Mishra MD is Attending Physician. ronna 10:15 Arm band placed on. ll1 10:17 Triage completed. ll1 10:42 Radiology exam delayed due to test not completed at this time. sj 10:54 Carolyn Howard, RN is Primary Nurse. ss 10:54 Patient placed in an exam room, on a stretcher. ss 11:00 Initial lab(s) drawn, by me, sent to lab. Urine collected: clean catch specimen, neri ll1 colored, Amount Voided: 300mL. Inserted saline lock: 22 gauge in right antecubital area, using aseptic technique. Blood collected. Flushed with 10 mL NS. 11:11 Patient has correct armband on for positive identification. Provided Education on: ER ll1 procedures and process. Warm blanket given. 11:11 Comprehensive Metabolic Panel Sent. ll1 11:11 CBC with Diff Sent. ll1 11:11 Test, Urine Sent. ll1 11:11 Urine Culture Sent. ll1 12:00 CT Stone Protocol In Process Unspecified. EDMS 14:57 MRI Lumbar Spine wo Con In Process Unspecified. EDMS 16:13 Andrés Hutton MD is Referral Physician. [facility] 16:13 Daron Disla MD is Referral Physician. [facility] 16:37 No provider procedures requiring assistance completed. IV discontinued, intact, ll1 bleeding controlled, No redness/swelling at site. Pressure dressing applied. Administered Medications: 11:11 Drug: NS 0.9% IV 1000 ml IV at 1000 ml once; to be given as a bolus over 60 minutes ll1 Route: IV; Rate: 1000 ml; Site: right antecubital; 13:02 Follow up: Response: No adverse reaction; IV Status: Completed infusion; IV Intake: ll1 1000ml 13:02 Drug: Rocephin IV 1 grams IV at per protocol once; Given slow IV push per pharmacy ll1 instructions Route: IV; Rate: per protocol; Site: right antecubital; 16:30 Follow up: Response: No adverse reaction; IV Status: Completed infusion; IV Intake: [id number] 13:02 Drug: Diazepam PO 10 mg PO once Route: PO; ll1 16:31 Follow up: Response: No adverse reaction ll1 13:02 Drug: Decadron - Dexamethasone IVP 10 mg IVP once Route: IVP; Site: right antecubital; ll1 16:31 Follow up: Response: No adverse reaction ll1 13:02 Drug: Ketorolac IVP 30 mg IVP once Route: IVP; Site: right antecubital; ll1 16:31 Follow up: Response: No adverse reaction; Pain is decreased ll1 13:02 Drug: Ondansetron IVP 4 mg IVP once; over 2 minutes Route: IVP; Site: right antecubital;1 16:31 Follow up: Response: No adverse reaction 1 13:03 Drug: fentaNYL (PF) IVP 50 mcg IVP once {Note: pain 8/10 RASS 0.} Route: IVP; Site: [facility] right antecubital; 16:31 Follow up: Response: No adverse reaction; Pain is decreased; RASS: Alert and Calm (0) [facility] 16:37 Drug: HYDROcodone-acetaminophen PO 5 mg-325 mg 1 tabs PO once Route: PO; [facility] 16:38 Follow up: Response: No adverse reaction [facility] Medication: 16:38 VIS not applicable for this client. 1 Intake: 13:02 IV: 1000ml; Total: 1000ml. ll1 16:30 IV: 50ml; Total: 1050ml. 1 Outcome: 16:13 Discharge ordered by . ronna 16:38 Discharged to home ambulatory, [facility] 16:38 Condition: stable 16:38 Discharge instructions given to patient, family, Instructed on discharge instructions, follow up and referral plans. no drinking with medication, no driving heavy equipment, medication usage, Demonstrated understanding of instructions, follow-up care, medications, Prescriptions given X x 5 17:24 Patient left the ED. 1 Signatures: Dispatcher [employer] EDMS Herminio Mishra MD MD cha Jones, Susan sj Blanchard, Shelby, RN RN Ty Duran RN RN [facility] Candace Phillips Corrections: (The following items were deleted from the chart) 10:15 10:13 PMHx: None; [place] [id number]
--- NOTE | 2025-02-10 16:13 | EDPHYS ---
Physician Documentation [facility] Name: Jamin Delarosa Age: 29 yrs Sex: Female : 1995 Arrival Date: 02/10/2025 Time: 10:01 Bed 9 Private MD: ED Physician Herminio Mishra HPI: 02/10 12:47 This 29 yrs old Female presents to ER via Ambulatory with complaints of Low ronna Back Pain, Urinary Problem. 12:47 The patient presents with pain that is acute, with no known mechanism of injury. The ronna symptoms are located in the low back. The pain does not radiate. The problem was sustained from unknown cause. Onset: The symptoms/episode began/occurred 3 day(s) ago. Modifying factors: The patient symptoms are alleviated by nothing, rest, the patient symptoms are aggravated by any movement, bending, walking. Associated signs and symptoms: The patient has no apparent associated signs or symptoms. Severity of symptoms: At their worst the symptoms were moderate, in the emergency department the symptoms are unchanged. The patient has experienced similar episodes in the past, a few times. 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 - Infectious Disease History:: Denies. - Social history:: Smoking status: Reported history of juuling and/or vaping. Patient denies any tobacco usage or history of. ROS: 12:49 Constitutional: Negative for fever, chills, and weight loss, Eyes: Negative for injury, ronna pain, redness, and discharge, ENT: Negative for injury, pain, and discharge, Neck: Negative for injury, pain, and swelling, Cardiovascular: Negative for chest pain, palpitations, and edema, Respiratory: Negative for shortness of breath, cough, wheezing, and pleuritic chest pain, Abdomen/GI: Negative for abdominal pain, nausea, vomiting, diarrhea, and constipation, : Negative for injury, bleeding, discharge, and swelling, MS/Extremity: Negative for injury and deformity, Skin: Negative for injury, rash, and discoloration, Neuro: Negative for headache, weakness, numbness, tingling, and seizure, Psych: Negative for depression, anxiety, suicide ideation, homicidal ideation, and hallucinations, Allergy/Immunology: Negative for hives, rash, and allergies, Endocrine: Negative for neck swelling, polydipsia, polyuria, polyphagia, and marked weight changes, Hematologic/Lymphatic: Negative for swollen nodes, abnormal bleeding, and unusual bruising, 12:49 Back: Positive for decreased range of motion, pain at rest, pain with movement, of the lumbar area, Exam: 12:49 Constitutional: This is a well developed, well nourished patient who is awake, alert, ronna and in no acute distress. Head/Face: Normocephalic, atraumatic. Eyes: Pupils equal round and reactive to light, extra-ocular motions intact. Lids and lashes normal. Conjunctiva and sclera are non-icteric and not injected. Cornea within normal limits. Periorbital areas with no swelling, redness, or edema. ENT: Nares patent. No nasal discharge, no septal abnormalities noted. Tympanic membranes are normal and external auditory canals are clear. Oropharynx with no redness, swelling, or masses, exudates, or evidence of obstruction, uvula midline. Mucous membranes moist. Neck: Trachea midline, no thyromegaly or masses palpated, and no cervical lymphadenopathy. Supple, full range of motion without nuchal rigidity, or vertebral point tenderness. No Meningismus. Chest/axilla: Normal chest wall appearance and motion. Nontender with no deformity. No lesions are appreciated. Cardiovascular: Regular rate and rhythm with a normal S1 and S2. No gallops, murmurs, or rubs. Normal PMI, no JVD. No pulse deficits. Respiratory: Lungs have equal breath sounds bilaterally, clear to auscultation and percussion. No rales, rhonchi or wheezes noted. No increased work of breathing, no retractions or nasal flaring. Abdomen/GI: Soft, non-tender, with normal bowel sounds. No distension or tympany. No guarding or rebound. No evidence of tenderness throughout. Skin: Warm, dry with normal turgor. Normal color with no rashes, no lesions, and no evidence of cellulitis. MS/ Extremity: Pulses equal, no cyanosis. Neurovascular intact. Full, normal range of motion., bilateral aka Neuro: Awake and alert, GCS 15, oriented to person, place, time, and situation. Cranial nerves II-XII grossly intact. Motor strength 5/5 in all extremities. Sensory grossly intact. Cerebellar exam normal. Normal gait. 12:49 Back: pain, that is moderate, ROM is painful, with flexion, with extension, normal spinal alignment noted, CVA tenderness, is absent, muscle spasm, is appreciated in the left low back, left mid back, right mid back and right low back, Vital Signs: 10:15 BP 120 / 73; Pulse 81; Resp 17; Temp 97.9; Pulse Ox 100% ; Weight 70.31 kg; Height 5 ll1 ft. 4 in. ; Pain 8/10; 16:30 BP 113 / 78; Pulse 76; Resp 16; Pulse Ox 100% on R/A; ll1 10:15 Body Mass Index 26.61 (70.31 kg, 162.56 cm) ll1 10:15 Pain Scale: Adult ll1 MDM: 10:06 Medical Screening Exam initiated ronna 12:52 Differential diagnosis: arthritis, strain, fracture, sciatica, contusion, Herniated ronna disc UTI, nonspecific abdominal pain. Data reviewed: vital signs, nurses notes, lab test result(s), radiologic studies, CT scan, MRI. Consideration of Admission/Observation Escalation of care including admission/observation considered. I considered the following discharge prescriptions or medication management in the emergency department Medications were administered in the Emergency Department. See MAR. Independent interpretation of the following test(s) in the Emergency Department CT Scan: My interpretation is CT STONE. MRI: My interpretation is MRI LUMBAR SPINE. Test considered but Not performed: Ultrasound NO RENAL USG. Historians other than the Patient: Spouse/Significant Other: SPOUSE WELL INFORMED. Care significantly affected by the following chronic conditions: PTSD. Counseling: I had a detailed discussion with the patient and/or guardian regarding the historical points, exam findings, and any diagnostic results supporting the discharge/admit diagnosis, lab results, radiology results, the need for outpatient follow up, for definitive care, a family practitioner, a neurologist. 02/10 10:07 Order name: CBC with Diff; Complete Time: 12: [facility] 02/10 10:07 Order name: Comprehensive Metabolic Panel; Complete Time: 12: [facility] 02/10 10:07 Order name: Test, Urine; Complete Time: 12:09 [facility] 02/10 10:07 Order name: Urine Culture [facility] 02/10 12:09 Order name: Urinalysis w/ reflexes; Complete Time: 12:30 [facility] 02/10 10:07 Order name: CT Stone Protocol; Complete Time: 12:42 [facility] 02/10 12:47 Order name: MRI Lumbar Spine wo Con; Complete Time: 16:14 [facility] Administered Medications: 11:11 Drug: NS 0.9% IV 1000 ml IV at 1000 ml once; to be given as a bolus over 60 minutes ll1 Route: IV; Rate: 1000 ml; Site: right antecubital; 13:02 Follow up: Response: No adverse reaction; IV Status: Completed infusion; IV Intake: ll1 1000ml 13:02 Drug: Rocephin IV 1 grams IV at per protocol once; Given slow IV push per pharmacy ll1 instructions Route: IV; Rate: per protocol; Site: right antecubital; 16:30 Follow up: Response: No adverse reaction; IV Status: Completed infusion; IV Intake: [id number] 13:02 Drug: Diazepam PO 10 mg PO once Route: PO; ll1 16:31 Follow up: Response: No adverse reaction ll1 13:02 Drug: Decadron - Dexamethasone IVP 10 mg IVP once Route: IVP; Site: right antecubital; ll1 16:31 Follow up: Response: No adverse reaction ll1 13:02 Drug: Ketorolac IVP 30 mg IVP once Route: IVP; Site: right antecubital; ll1 16:31 Follow up: Response: No adverse reaction; Pain is decreased ll1 13:02 Drug: Ondansetron IVP 4 mg IVP once; over 2 minutes Route: IVP; Site: right antecubital;ll1 16:31 Follow up: Response: No adverse reaction ll1 13:03 Drug: fentaNYL (PF) IVP 50 mcg IVP once {Note: pain 8/10 RASS 0.} Route: IVP; Site: ll1 right antecubital; 16:31 Follow up: Response: No adverse reaction; Pain is decreased; RASS: Alert and Calm (0) ll1 16:37 Drug: HYDROcodone-acetaminophen PO 5 mg-325 mg 1 tabs PO once Route: PO; ll1 16:38 Follow up: Response: No adverse reaction 1 Disposition Summary: 02/10/25 16:13 Discharge Ordered Notes: Location: Home ronna Problem: new ronna Symptoms: have improved ronna Condition: Stable ronna Diagnosis - Low back pain ronna - Strain of muscle, fascia and tendon of abdomen, lower back and pelvis ronna - Other fracture of unspecified lumbar vertebra ronna - Other intervertebral disc degeneration, lumbar region - L5-S1 ronna - UTI/ Urinary tract infection, site not specified ronna Followup: ronna - With: Private Physician - When: 2 - 3 days - Reason: Recheck today's complaints, Continuance of care, Re-evaluation by your physician Followup: ronna - With: Andrés Hutton MD - When: 2 - 3 days - Reason: Recheck today's complaints, Re-evaluation by your physician Followup: ronna - With: Daron Disla MD - When: 2 - 3 days - Reason: Recheck today's complaints, Re-evaluation by your physician Discharge Instructions: - Discharge Summary Sheet ronna - Acute Back Pain, Adult ronna - Herniated Disk ronna - Musculoskeletal Pain ronna - Urinary Tract Infection, Adult ronna - Urinary Tract Infection, Adult, [id number] ronna - Herniated Disk, [id number] [facility] Forms: - Medication Reconciliation Form ronna - Antibiotic Education ronna - Prescription Opioid Use ronna - Patient Portal Instructions [facility] - Leadership Thank You Letter [facility] Prescriptions: - cefdinir 300 mg Oral capsule - take 1 capsule ORAL route daily for 5 days; 10 capsule; Refills: 0, Product ronna Selection Permitted - Diclofenac Sodium 75 mg Oral Tablet Sustained Release - take 1 tablet ORAL route 2 times per day; 30 tablet; Refills: 0, Product ronna Selection Permitted - methocarbamol 750 mg Oral tablet - take 1 tablet ORAL route 4 times per day; 28 tablet; Refills: 0, Product [facility] Selection Permitted - Tylenol-Codeine #3 300mg-30mg Oral tablet - take 2 tablets ORAL route every 6 hours As needed; 20 tablet; Refills: 0, [facility] Product Selection Permitted - Dexamethasone 4mg Oral tablet - take 1 tablet ORAL route daily for 5 days; 5 tablet; Refills: 0, Product [facility] Selection Permitted Signatures: Dispatcher [employer] Herminio Grove MD MD cha Lewis, Lynsay, RN RN ll1 Corrections: (The following items were deleted from the chart) 10:15 10:13 PMHx: None; ll1 ll1
[2025-02-10] MEDS ORDERED: HYDROCODONE/APAP 5/325 MG TAB ONE (16:34)
[2025-02-10 19:26] VITALS: TEMP 97.9; O2SAT 100
[2025-02-10 19:27] VITALS: BP 113/78
== END 2025-02-10 17:24 | disposition home or self-care (01) ==
LOC: ER 10:01
DX: S39.012A Strain of muscle, fascia and tendon of lower back, initial encounter (principal); S39.011A Strain of muscle, fascia and tendon of abdomen, initial encounter; S39.013A Strain of muscle, fascia and tendon of pelvis, initial encounter; S32.008A Other fracture of unspecified lumbar vertebra, initial encounter for closed fracture; M51.379 Other intervertebral disc degeneration, lumbosacral region without mention of lumbar back pain or lower extremity pain; N39.0 Urinary tract infection, site not specified; Z98.82 Breast implant status
CPT/HCPCS: 96365; 96361; 87088; 85025; 81001; 87086; 36415; 81025; 80053; 76377; 74176; 72148; 96375; 99284; 96366; J3010; J1100; J2405; J7030; J0696